=== PATIENT | female | born 1975 ===

== ENCOUNTER 2019-11-24 16:07 | Outpatient (REF) | payer BC, SELFPAY ==
--- NOTE | 2019-11-24 | XR_ITS ---
EXAMINATION: XR CHEST CLINICAL INFORMATION: Preprocedural examination COMPARISON: None TECHNIQUE: 2 views of the chest were obtained. FINDINGS: Mild bronchovascular crowding. No focal consolidation or mass. Normal pulmonary vascularity. No pleural effusion or pneumothorax. Normal heart size. There are degenerative changes of the shoulders and thoracic spine. IMPRESSION: No acute pulmonary disease.
[2019-11-24 16:54] LABS: MANUAL DIFF FLAG NO
[2019-11-24 16:57] LABS: Basophils Percent Auto 0.2 % (0-2); Eosinophils Absolute Auto 0.1 X10*3/uL (0.0-0.4); Hematocrit 35.3 % (37-47); Hemoglobin 11.1 g/dl (12.0-16.0); Imm Gran Abs Auto 0.03 X10*3/uL (0.00-0.03); Imm Gran Pct Auto 0.4 % (0.0-0.4); Lymphocytes Absolute Auto 2.3 X10*3/uL (1.2-4.9); Lymphocytes Percent Auto 26.9 % (20-40); Mean Corpuscular HGB Conc 31.4 g/dl (31.0-35.0); Mean Corpuscular Hemoglobin 27.4 pg (27.0-33.0); Mean Corpuscular Volume 87.2 fL (80-98); Mean Platelet Volume 9.9 fL (9.4-12.3); Monocytes Absolute Auto 0.4 X10*3/uL (0.1-1.2); Monocytes Percent Auto 4.2 % (2-11); Neutrophils Absolute Auto 5.7 X10*3/uL (2.0-8.3); Neutrophils Percent Auto 67.3 % (45-73); Platelet Count 368 X10*3/uL (160-400); Red Blood Count 4.05 X10*6/uL (4.20-5.50); Red Cell Distribution Width 12.9 % (11.0-16.0); White Blood Count 8.4 X10*3/uL (4.8-10.8)
[2019-11-24 17:05] LABS: Estimated Average Glucose 128 mg/dL; Hemoglobin A1c % 6.1 %
[2019-11-24 17:26] LABS: Alanine Aminotransferase 18 U/L (0-31); Albumin Level 4.3 g/dL (3.5-5.0); Alkaline Phosphatase 95 U/L (39-117); Anion Gap 13 (12-20); Aspartate Amino Transferase 15 U/L (5-31); Bilirubin Total 0.3 mg/dL (0.0-1.0); Blood Urea Nitrogen 12 mg/dL (9-16); Calcium 9.1 mg/dL (8.4-10.2); Carbon Dioxide 25 mmol/L (22-29); Chloride 108 mmol/L (96-108); Cholesterol 180 mg/dL; Estimated Glomerular Filt Rate > 60; Glucose Random 94 mg/dL (60-115); HDL Cholesterol 31 mg/dL; Iron 29 mcg/dL (30-160); LDL Cholesterol Calculated 130 mg/dl; Percent Iron Saturation 8 % (15-50); Sodium 142 mmol/L (135-145); Total Iron Binding Capacity 359 mcg/dL (228-428); Total Protein 7.2 g/dL (6.5-8.0); Triglycerides 99 mg/dL; Unsaturated Iron Binding 330 ug/dL
[2019-11-24 17:48] LABS: Ferritin 64 ng/mL (10-250); Vitamin D 25-OH Total 11.9 ng/mL (>30)
[2019-11-24 17:57] LABS: Vitamin B12 632 pg/mL (200-900)
[2019-11-25 12:47] LABS: Insulin Level Total 11.7 uIU/mL
[2019-11-26 02:11] LABS: Calcium (PTHI) 9.2 mg/dL (8.6-10.2); PTHI 70 pg/mL (14-64)
[2019-11-28 02:52] LABS: Zinc 72 mcg/dL (60-130)
[2019-11-29 12:46] LABS: Vitamin B1 <6 nmol/L (8-30)
[2019-11-29 22:21] LABS: Vitamin A 31 mcg/dL (38-98)
== END 2019-11-24 16:08 | disposition home or self-care (01) ==
LOC: HO.LAB 16:07
PROVIDERS: PCP Family Medicine; Visit Provider Surgery
DX: Z01.818 Encounter for other preprocedural examination (principal); E66.01 Morbid (severe) obesity due to excess calories; M51.34 Other intervertebral disc degeneration, thoracic region; R06.02 Shortness of breath
CPT/HCPCS: 36415; 71046; 80053; 80061; 82306; 82607; 82728; 82746; 83036; 83525; 83540; 83970; 84425; 84443; 84590; 84630; 85025; 86140

== ENCOUNTER → 2019-12-08 15:32 | Outpatient (REF) | payer BC, SELFPAY ==
--- NOTE | 2019-12-08 15:43 | ECG_ITS ---
Test Reason : SOB, PREOP Blood Pressure : / mmHG Vent. Rate : 095 BPM Atrial Rate : 095 BPM P-R Int : 142 ms QRS Dur : 090 ms QT Int : 358 ms P-R-T Axes : 041 019 -17 degrees QTc Int : 449 ms Normal sinus rhythm Nonspecific ST and T wave abnormality Abnormal ECG No previous ECGs available Referred By: Jacques Rodriguez Electronically Signed By:ASHLEY HAY MD
== END ==
LOC: HO.CARD 15:32
PROVIDERS: Visit Provider Surgery
DX: Z01.818 Encounter for other preprocedural examination (principal); R06.02 Shortness of breath; R94.31 Abnormal electrocardiogram [ECG] [EKG]
CPT/HCPCS: 93005

== ENCOUNTER → 2019-12-14 07:33 | Outpatient (BNVA) | payer BC, SELFPAY | PROVIDERS: PCP Orthopaedic Surgery; Referring Provider Orthopaedic Surgery; Visit Provider Surgery | DX: Z76.89 Persons encountering health services in other specified circumstances (principal) ==

== ENCOUNTER 2019-12-15 12:47 | Outpatient (REF) | payer BC, SELFPAY ==
[2019-12-16 16:07] LABS: H Pylori Breath Test NOT DETECTED (NOT DETECTED)
== END 2019-12-15 12:48 | disposition home or self-care (01) ==
LOC: HO.LNP 12:47
PROVIDERS: PCP Orthopaedic Surgery; Referring Provider Orthopaedic Surgery; Visit Provider Dietitian, Registered
DX: Z01.818 Encounter for other preprocedural examination (principal); E66.01 Morbid (severe) obesity due to excess calories; A04.8 Other specified bacterial intestinal infections; Z68.42 Body mass index [BMI] 45.0-49.9, adult; Z88.2 Allergy status to sulfonamides; Z91.040 Latex allergy status; Z71.3 Dietary counseling and surveillance
CPT/HCPCS: 83013

== ENCOUNTER 2019-12-15 16:00 | Outpatient (RCR) | payer BC, SELFPAY ==
--- NOTE | 2020-05-10 08:37 | MHC.PT.DC ---
[facility] [place] Office [place] Office [place] Office [address] Fei Winter [address] [phone] F: [phone] F: [phone] F: [phone] F: [phone] Physical Therapy Discharge Report Diagnosis: right knee pain Date of Surgery: Date of Evaluation: 10/20/19 Date of Discharge: 05/10/20 Treatments to Date: 9 Cancellations to Date: 0 No Shows to Date: 0 Discharge Status: Independent with HEP Visit Non-compliance Discharge Summary: Pt did not f/u with last visit and is d/c at this time. Electronically signed by: Katharine Dominguez PT Please sign and return to therapist. Thank you for your referral.
== END 2020-05-10 08:37 | disposition home or self-care (01) ==
LOC: HO.PT 16:00
PROVIDERS: Visit Provider Family Medicine
DX: M25.561 Pain in right knee (principal)
CPT/HCPCS: 97110

== ENCOUNTER 2020-01-05 09:17 | Outpatient (REF) | payer BC, SELFPAY ==
--- NOTE | 2020-01-05 09:30 | CA_ITS ---
Transthoracic Echocardiogram Patient (Last, First, Middle): Shantel Smith C Gender: Female Date of : 1975 Age: 44 Procedure Date: 01/05/2020 Procedure Type: Transthoracic Echocardiogram Location: OP Height: 160.02 cm Weight: 124.74 kg BSA: 2.21 m2 Heart Rate: bpm BP: 136 / 86 mmHg House Painter: Renu MD: Jacques Rodriguez MD Bench Grinder: Sammy Ryan MD Symptoms: Z01.818 PRE OP I10 HTN Study Quality: Good ECG Rhythm: Sinus Conclusions: - Essentially normal study Findings Left Ventricle Normal left ventricular size, thickness, and systolic function. The visually estimated ejection fraction is between 55-60%. Diastolic function is normal for age. Right Ventricle Normal right ventricular cavity size and systolic function. Atria Both atria are normal in size. There is no evidence of interatrial shunt. Aortic Valve Normal aortic valve structure and function. There is no aortic valve stenosis. There is no aortic valve regurgitation. Mitral Valve Normal mitral valve structure and function. There is trace mitral valve regurgitation. There is no mitral valve stenosis. Pulmonic Valve The pulmonic valve is likely normal. Tricuspid Valve Normal tricuspid valve structure. There is trace tricuspid valve regurgitation. The right ventricular systolic pressure is normal. The right ventricular systolic pressure is 28 mmHg. Normal right atrial pressure. There is no evidence of pulmonary hypertension. Great Vessels All visible segments of the aorta are normal in size. The pulmonary artery was not well visualized. Venous The inferior vena cava is normal in size and collapses greater than 50% with inspiration. Pericardium/Pleural There is no evidence of pericardial effusion. Prior Study Comparison No prior study available for comparison. Measurements 2D Linear Measurements RVIDd: 3.10 RVIDd Index: 1.40 IVSd: 0.91 0.6-0.9/0.6-1.0 cm LVIDd: 5.35 3.9-5.3/4.2-5.9 cm LVIDd Index: 2.42 2.4-3.2/2.2-3.1 cm/m2 LVIDs: 3.64 2.0-3.6 cm LVPWd: 1.13 0.7-1.1 cm Ao Root: 3.10 2.1-3.5 cm LA Diam: 4.40 2.7-3.8/3.0-4.0 cm LAIDs Index: 1.99 1.5-2.3 cm/m2 LV Mass: 259.62 67-162/88-224 g LV Mass Index: 117.48 43-95/49-115 g/m2 LVOT Diam: 2.20 3.0+(-)1.3 cm 2D Systolic Function EF 4C: 51.70 >55% EF 2C: 52.70 >55% Mitral Valve MV Pk E: 0.74 MV PK A: 0.55 MV Decel Time: 168.00 E/A: 1.30 E'Lateral: 10.80 E'Medial: 5.98 E/E' Med: 12.30 E/E' Lat: 6.80 Aortic Valve AoV Pk Enmanuel: 1.58 AoV Mn Enmanuel: 1.18 AoV VTI: 0.30 AoV Pk Grad: 10.00 Aov Mn Grad: 6.00 LAWRENCE Cont.VTI: 2.05 LVOT LVOT Pk Enmanuel: 0.88 LVOT Mn Enmanuel: 0.56 LVOT VTI: 0.16 LVOT Pk Grad: 3.00 LVOT Mn Grad: 2.00 LVOT Diam: 2.20 LVOT Area: 3.80 Diastolic Function MV Pk E: 0.74 MV Pk A: 0.55 E/A: 1.30 E'Medial: 5.98 E/E' Med: 12.30 E' Laterial: 10.80 E/E' Lat: 6.80 Tricuspid Valve TR Pk Enmanuel: 2.48 TR Pk Grad: 25.00 RA Press: 3.00 RVSP: 28.00 Great Vessels Aorta Ao Root-2D: 3.10 2.0-3.7 cm Ao Asc: 3.20 2.1-3.4 cm Ao Arch: 2.90 Updated in Other Vendor System with Status of Final Sammy Ryan MD electronically signed on 01/06/2020 2:43:48 PM with status of Final
--- NOTE | 2020-01-05 10:20 | FL_ITS ---
EXAMINATION: XR GI SERIES CLINICAL INFORMATION: Obesity. GERD. COMPARISON: None. TECHNIQUE: Air contrast upper GI examination. FINDINGS: Patient swallowed thin and thick barium and CO2 crystals without difficulty. No nasopharyngeal reflux or tracheal aspiration appreciated. There is normal esophageal motility without evidence of hiatal hernia or mucosal abnormality. There was spontaneous gastroesophageal reflux elicited to the level of the patricia which cleared rapidly. The stomach demonstrated normal distensibility without abnormal mass or ulceration. There was no delay in gastric emptying. The duodenal bulb and sweep are unremarkable FLUOROSCOPY TIME: 0.9 minute. DOSE AREA PRODUCT: 16.065 Gy-cm2. FL/FL upper GI series IMPRESSION: Gastroesophageal reflux to the level of the patricia which clears rapidly. Otherwise unremarkable air-contrast upper GI examination.
== END 2020-01-05 09:18 | disposition home or self-care (01) ==
LOC: HO.US 09:17
PROVIDERS: Visit Provider Surgery
DX: Z01.818 Encounter for other preprocedural examination (principal); I10 Essential (primary) hypertension; E66.01 Morbid (severe) obesity due to excess calories; K21.9 Gastro-esophageal reflux disease without esophagitis
CPT/HCPCS: 74240; 93306

== ENCOUNTER 2020-01-05 10:17 | Outpatient (REF) | payer BC, SELFPAY | END 2020-01-05 10:18 | disposition home or self-care (01) | LOC: HO.XRAY 10:17 | PROVIDERS: Visit Provider Surgery | DX: Z13.89 Encounter for screening for other disorder (principal) ==

== ENCOUNTER → 2020-01-06 07:20 | Outpatient (BNVA) | payer BC, SELFPAY | PROVIDERS: PCP Orthopaedic Surgery; Visit Provider Surgery | DX: Z76.89 Persons encountering health services in other specified circumstances (principal) ==

== ENCOUNTER → 2020-01-11 07:31 | Outpatient (BNVA) | payer BC, SELFPAY | PROVIDERS: Visit Provider Surgery | DX: Z76.89 Persons encountering health services in other specified circumstances (principal) ==

== ENCOUNTER 2020-01-26 14:32 | Outpatient (REF) | payer BC, SELFPAY ==
--- NOTE | 2020-01-26 | US_ITS ---
EXAMINATION: US COMPLETE ABDOMEN WITH LIVER ELASTOGRAPHY CLINICAL INFORMATION: Obesity. COMPARISON: None. TECHNIQUE: Real-time imaging of the abdominal viscera. Noninvasive ultrasound liver fibrosis assessment is performed using David ElastPQ point quantification shear wave elastography (pSWE) with a 5 MHz transducer. Multiple elastography samples are obtained. FINDINGS: PANCREAS: Normal. The visualized pancreatic head and body are normal in appearance. The remainder of the pancreas is obscured from visualization by the overlying bowel gas. ABDOMINAL AORTA: The proximal, middle, and distal aortic segments are normal in caliber. INFERIOR VENA CAVA: Visualized portions are normal. LIVER: The liver demonstrates normal size, contour and increased echogenicity. No focal lesion or intrahepatic biliary duct dilatation. There is normal hepatopedal flow seen in the portal vein on Doppler exam. The right lobe measures 14.0 cm in length. The left lobe measures 11.4 cm in length. Shear wave elastography provides a median stiffness of 1.70 m/s (reference: normal median stiffness is 0.81 - 1.22 m/s). The IQR/median stiffness to assess sampling precision is 0.79 (reference: optimal IQR/median stiffness is under 0.3). GALLBLADDER: Normal. The gallbladder is physiologically distended without evidence of stones, sludge, polyps, wall thickening or pericholecystic fluid. COMMON BILE DUCT: Normal in caliber measuring 0.42 cm in diameter. RIGHT KIDNEY: Normal. No hydronephrosis. No renal calculi or focal parenchymal lesions. The kidney measures 11.2 cm in maximum dimension. LEFT KIDNEY: Normal. No hydronephrosis. No renal calculi or focal parenchymal lesions. The kidney measures 12.1 cm in maximum dimension. SPLEEN: Normal. The spleen measures 11.4 cm in maximum dimension. FREE FLUID: None. US/US abdomen comp w elastography IMPRESSION: 1. Hepatic steatosis without focal lesion. 2. Rest of the abdominal ultrasound is unremarkable. 3. Elastography: Vuoo-ix-qkentwon fibrosis, stage F2-F3. However, ultrasound liver sampling is suboptimal.
== END 2020-01-26 14:33 | disposition home or self-care (01) ==
LOC: HO.US 14:32
PROVIDERS: Visit Provider Surgery
DX: Z01.818 Encounter for other preprocedural examination (principal); E66.01 Morbid (severe) obesity due to excess calories; K76.0 Fatty (change of) liver, not elsewhere classified
CPT/HCPCS: 76705; 76981

== ENCOUNTER 2020-01-30 12:10 | Outpatient (REF) | payer BC, SELFPAY | END 2020-01-30 12:11 | disposition home or self-care (01) | LOC: HO.LAB 12:10 | PROVIDERS: Visit Provider Internal Medicine | DX: Z20.828 Contact with and (suspected) exposure to other viral communicable diseases (principal) | CPT/HCPCS: C9803; U0003 ==

== ENCOUNTER → 2020-02-03 07:50 | Outpatient (BNVA) | payer BC, SELFPAY | PROVIDERS: PCP Family Medicine; Referring Provider Family Medicine; Visit Provider Surgery | DX: Z76.89 Persons encountering health services in other specified circumstances (principal) ==

== ENCOUNTER → 2020-02-13 08:20 | Outpatient (BNVA) | payer BC, SELFPAY | PROVIDERS: PCP Family Medicine; Visit Provider Dietitian, Registered | DX: Z76.89 Persons encountering health services in other specified circumstances (principal) ==

== ENCOUNTER → 2020-03-02 08:25 | Outpatient (BNVA) | payer BC, SELFPAY | PROVIDERS: PCP Family Medicine; Visit Provider Surgery | DX: Z76.89 Persons encountering health services in other specified circumstances (principal) ==

== ENCOUNTER → 2020-03-26 07:30 | Outpatient (BNVA) | payer BC, SELFPAY | PROVIDERS: PCP Family Medicine; Visit Provider Surgery ==

== ENCOUNTER → 2020-04-20 07:29 | Outpatient (BNVA) | payer BC, SELFPAY | PROVIDERS: PCP Family Medicine; Visit Provider Surgery ==

== ENCOUNTER → 2020-05-07 08:27 | Outpatient (BNVA) | payer BC, SELFPAY | PROVIDERS: PCP Family Medicine; Visit Provider Surgery ==

== ENCOUNTER → 2020-07-04 07:08 | Outpatient (BNVA) | payer BC, SELFPAY | PROVIDERS: PCP Family Medicine; Visit Provider Surgery ==

== ENCOUNTER → 2020-07-27 07:13 | Outpatient (BNVA) | payer BC, SELFPAY | PROVIDERS: PCP Family Medicine; Visit Provider Surgery ==

== ENCOUNTER → 2020-08-27 07:52 | Outpatient (BNVA) | payer BC, SELFPAY | PROVIDERS: PCP Family Medicine; Visit Provider Surgery ==

== ENCOUNTER → 2020-08-31 13:17 | Outpatient (BNVA) | payer BC, SELFPAY | PROVIDERS: PCP Family Medicine; Visit Provider Physician Assistant ==

== ENCOUNTER 2020-09-04 06:43 | Inpatient (IN) | payer BC, SELFPAY ==
[2020-08-29 14:23] VITALS: BMI 44.8
[2020-08-31 16:03] LABS: MANUAL DIFF FLAG NO
[2020-08-31 16:06] LABS: Basophils Percent Auto 0.4 % (0-2); Eosinophils Absolute Auto 0.1 X10*3/uL (0.0-0.4); Eosinophils Percent Auto 0.5 % (0-4); Hematocrit 38.2 % (37-47); Hemoglobin 12.1 g/dl (12.0-16.0); Imm Gran Abs Auto 0.05 X10*3/uL (0.00-0.03); Imm Gran Pct Auto 0.5 % (0.0-0.4); Lymphocytes Absolute Auto 2.5 X10*3/uL (1.2-4.9); Lymphocytes Percent Auto 26.7 % (20-40); Mean Corpuscular HGB Conc 31.7 g/dl (31.0-35.0); Mean Corpuscular Volume 88.4 fL (80-98); Mean Platelet Volume 9.5 fL (9.4-12.3); Monocytes Absolute Auto 0.4 X10*3/uL (0.1-1.2); Monocytes Percent Auto 3.7 % (2-11); Neutrophils Absolute Auto 6.5 X10*3/uL (2.0-8.3); Neutrophils Percent Auto 68.2 % (45-73); Platelet Count 413 X10*3/uL (160-400); Red Blood Count 4.32 X10*6/uL (4.20-5.50); Red Cell Distribution Width 12.8 % (11.0-16.0); White Blood Count 9.5 X10*3/uL (4.8-10.8)
[2020-08-31 16:12] LABS: INTERNATIONAL NORM RATIO 1.1 (0.9-1.1)
[2020-08-31 16:15] LABS: Partial Thromboplastin Time 31.8 SEC (24.1-38.0)
[2020-08-31 16:16] LABS: Estimated Average Glucose 111 mg/dL; Hemoglobin A1c % 5.5 %
[2020-08-31 16:24] LABS: Alanine Aminotransferase 24 U/L (0-31); Albumin Level 4.3 g/dL (3.5-5.0); Alkaline Phosphatase 96 U/L (39-117); Anion Gap 14 (12-20); Aspartate Amino Transferase 22 U/L (5-31); Bilirubin Total 0.4 mg/dL (0.0-1.0); Blood Urea Nitrogen 10 mg/dL (9-16); C Reactive Protein 1.36 mg/dL (< or = 0.50); Calcium 9.5 mg/dL (8.4-10.2); Carbon Dioxide 25 mmol/L (22-29); Chloride 107 mmol/L (96-108); Cholesterol 184 mg/dL; Creatinine Clr Calc Pharmacy 136.9; Estimated Glomerular Filt Rate > 60; Glucose Random 92 mg/dL (60-115); HDL Cholesterol 36 mg/dL; LDL Cholesterol Calculated 131 mg/dl; Potassium 4.4 mmol/L (3.3-5.1); Sodium 142 mmol/L (135-145); Total Protein 7.3 g/dL (6.5-8.0); Triglycerides 87 mg/dL
[2020-08-31 16:44] LABS: TSH reflex Free T4 1.35 uIU/mL (0.32-4.0)
[2020-09-01 09:52] LABS: Insulin Level Total 12.8 uIU/mL
--- NOTE | 2020-09-03 08:32 | P.CONAN_ITS ---
Documented by User: Adelia Edgar 09/03/20 08:33 HPI - Anesthesia Eval Consult details Narrative: 45yo F for Gastrectomy Sleeve, EGD, Poss Diaphragmatic Hernia, Poss Ventral Hernia, Poss open PMFSH Active Problems Active Problems: All Active Problems (Updated 08/29/20 @ 14:20 by Desiree Schmidt) Vitamin D deficiency (Acute) Anemia (Acute) Family planning (Acute) Pre-op evaluation (Acute) Morbid obesity (Acute) Past Medical History Medical History Arthritis Back pain GERD (gastroesophageal reflux disease) HTN (hypertension) DONAVAN on CPAP Pre-op evaluation Family History Family History Father Renal failure Mother Diabetes Hypothyroid Brother No problems noted. Sister No problems noted. Sister No problems noted. Surgical History Surgical History History of laparoscopy History of left oophorectomy Morbid obesity Umbilical hernia Social History Social History Household Members Other:: 2 Foster children Are you a primary career representative to a significant other at home: Yes (2 foster children will be cared for by others for 1 week after surgery) Do you presently have visiting nurse or other home services: No Alcohol intake: current Alcohol intake frequency: a few times a month Patient Tobacco Use Status: Never used Tobacco Use of substances other than those prescribed or required for medical reasons: No Have you been hit, kicked, punched, or otherwise hurt by someone within the past year? If so, by whom?: No Are you DNR?: No Advance Directives: No Advance Directives Information Provided: No Recently lost weight without trying: No Patient : No FDLMP: 07/31/20 : No Poor oral hygiene: No Meds Allergies Allergy/AdvReac Type Severity Reaction Status Date / Time latex Allergy Intermediate Blister Uncoded 08/29/20 14:22 Sulf-10 Allergy Intermediate Itching, Uncoded 08/29/20 14:22 skin crawls Exam Exam Date and Time: September 03, 2020 0832 Height,Weight and Vital Signs: Height 5 ft 3 in Weight 114.759 kg Pertinent Lab Results Pertinent Lab Results: Laboratory Tests 08/31/20 08/31/20 08/31/20 15:38 15:38 15:38 WBC 9.5 RBC 4.32 Hgb 12.1 Hct 38.2 MCV 88.4 MCH 28.0 MCHC 31.7 RDW 12.8 Plt Count 413 H MPV 9.5 Immature Gran % (Auto) 0.5 H Neut % (Auto) 68.2 Lymph % (Auto) 26.7 [place] % (Auto) 3.7 Eos % (Auto) 0.5 Baso % (Auto) 0.4 Lymph # (Auto) 2.5 [place] # (Auto) 0.4 Eos # (Auto) 0.1 Baso # (Auto) 0.0 Abs Immat Gran (auto) 0.05 H Absolute Neuts (auto) 6.5 Absolute Nucleated RBC 0.000 Nucleated RBC % (auto) 0.0 PT 12.0 INR 1.1 APTT 31.8 Sodium 142 Potassium 4.4 Chloride 107 Carbon Dioxide 25 Anion Gap 14 BUN 10 Creatinine 0.62 Estim Creat Clear Calc 136.9 Estimated GFR > 60 Random Glucose 92 Estimat Average Glucose Hemoglobin A1c % Total Insulin Calcium 9.5 Total Bilirubin 0.4 AST 22 D ALT 24 Alkaline Phosphatase 96 C-Reactive Protein 1.36 H Total Protein 7.3 Albumin 4.3 Triglycerides 87 Cholesterol 184 LDL Cholesterol, Calc 131 HDL Cholesterol 36 TSH 1.35 Blood Type Antibody Screen 08/31/20 08/31/20 08/31/20 15:38 15:38 15:38 WBC RBC Hgb Hct MCV MCH MCHC RDW Plt Count MPV Immature Gran % (Auto) Neut % (Auto) Lymph % (Auto) [place] % (Auto) Eos % (Auto) Baso % (Auto) Lymph # (Auto) [place] # (Auto) Eos # (Auto) Baso # (Auto) Abs Immat Gran (auto) Absolute Neuts (auto) Absolute Nucleated RBC Nucleated RBC % (auto) PT INR APTT Sodium Potassium Chloride Carbon Dioxide Anion Gap BUN Creatinine Estim Creat Clear Calc Estimated GFR Random Glucose Estimat Average Glucose 111 Hemoglobin A1c % 5.5 Total Insulin 12.8 Calcium Total Bilirubin AST ALT Alkaline Phosphatase C-Reactive Protein Total Protein Albumin Triglycerides Cholesterol LDL Cholesterol, Calc HDL Cholesterol TSH Blood Type O Positive Antibody Screen NEGATIVE Narrative Narrative: EKG 11/2019 Vent. Rate : 095 BPM Atrial Rate : 095 BPM P-R Int : 142 ms QRS Dur : 090 ms QT Int : 358 ms P-R-T Axes : 041 019 -17 degrees QTc Int : 449 ms Normal sinus rhythm Nonspecific ST and T wave abnormality Abnormal ECG No previous ECGs available ECHO 12/2019 Conclusions: - Essentially normal study Assessment and Plan Assessment Anesthesia Assessment: Chart Reviewed Documented by User: Wan Glover 09/04/20 07:33 PMFSH Past Medical History Medical History Arthritis Back pain GERD (gastroesophageal reflux disease) HTN (hypertension) DONAVAN on CPAP Pre-op evaluation Family History Family History Father Renal failure Mother Diabetes Hypothyroid Brother No problems noted. Sister No problems noted. Sister No problems noted. Surgical History Surgical History History of laparoscopy History of left oophorectomy Morbid obesity Umbilical hernia Social History Social History Household Members Other:: 2 Foster children Are you a primary career representative to a significant other at home: Yes (2 foster children will be cared for by others for 1 week after surgery) Do you presently have visiting nurse or other home services: No Alcohol intake: current Alcohol intake frequency: a few times a month Patient Tobacco Use Status: Never used Tobacco Use of substances other than those prescribed or required for medical reasons: No Have you been hit, kicked, punched, or otherwise hurt by someone within the past year? If so, by whom?: No Are you DNR?: No Advance Directives: No Advance Directives Information Provided: No Recently lost weight without trying: No Patient : No FDLMP: 07/31/20 : No Poor oral hygiene: No Meds Allergies Allergy/AdvReac Type Severity Reaction Status Date / Time latex Allergy Intermediate Blister Uncoded 08/29/20 14:22 Sulf-10 Allergy Intermediate Itching, Uncoded 08/29/20 14:22 skin crawls Exam Airway Mallampati Class: III TM Dist: >3cm Neck ROM: Full Loose/Missing/Broken Teeth: No Heart: [id number] Lungs: cta b/l Assessment and Plan Assessment Anesthesia Assessment: Anesthesia Plan Discussed, PAT Visit and Chart Reviewed Final Anesthetic Review NPO: Yes ASA Class: III Final Preanesthetic Review: No Changes in Pt Med Stat, Meds/Allgs Chart Reviewed, Consent Obtained/Reviewed and Anes Risks/Benef Reviewed Patient Risk: Intermediate Procedure Risk: Low Assessment/Block/Sedation in SS: Assess/Block/Sedation-SS Anesthetic Plan Anesthetic Plan: GA and Agree w/ Assess. and Plan Disposition: Standard PACU
--- NOTE | 2020-09-03 23:54 | MHC.SHP ---
Pre-Procedural Eval Section A Date of Service: 09/03/20 The patient is an INPATIENT: Yes The History & Physical has been completed within 30 days and I have reviewed it.: Yes Section B Chief Complaint: Morbid Severe Obesity Details of Present Illness: Obesity Relevant Family History (Specify if Yes): No Relevant Social History: None Present Medications: see Short Stay Collaborative assessment Medical History: No relevant PMH History of Previous Operations: No relevant previous surgery Allergies: Allergies Allergy/AdvReac Type Severity Reaction Status Date / Time latex Allergy Intermediate Blister Uncoded 08/29/20 14:22 Sulf-10 Allergy Intermediate Itching, Uncoded 08/29/20 14:22 skin crawls Review of Systems Sugical H&P ROS: Negative: Constitution, Cardiovascular, Respiratory, Neurological, Psychiatric, Hem-Onc, Allergic/Immunologic, Gastrointestinal, Genitourinary, Musculoskeletal, Integumentary, Endocrine and Eyes/Ears/Nose/Throat Exam Surgical H&P Exam: Normal: HEENT, Normal: Heart, Normal: Lungs, Normal: Extremities, Normal: Abdomen, Normal: Skin and Normal: Neurological Plan Diagnosis/Plan: Unchanged I have reviewed the history and physical and performed a pertinent physical examination on my patient. No changes have occurred unless specified.
[2020-09-04] VITALS (10 sets, daily range): BP systolic 134–161; BP diastolic 81–96; PULSE 70–86; RESP 16–20; TEMP 36.2–36.4; O2SAT 96–100
[2020-09-04 07:56] LABS: UPreg QC Valid YES; Urine Pregnancy NEGATIVE (NEGATIVE)
[2020-09-04 08:09] LABS: COVID-19 Test Negative (Negative)
[2020-09-04] MEDS: Lactated Ringers 1,000 ML 999 ML IV (08:26)
--- NOTE | 2020-09-04 14:03 | P.BOP_ITS ---
Brief Operative Note Date of Service: 09/04/20 Pre-op diagnosis: Morbid obesity and comorbidities (see below) Post-op diagnosis: same (& extensive abdominal adhesions, hepatomegaly, diaphragmatic hernia) Procedure: INITIAL PATIENT BMI ON PRESENTATION AT OUR OFFICE: 50.4 kg/m2 LAST BMI BEFORE SURGERY: 45.6 kg/m2 COMORBIDITIES: sleep apnea, hypertension, diabetes, PCOS, liver steatosis, liver fibrosis, knee pain, GERD The patient participated in an intensive weekly lifestyle intervention and exercise program during which the patient has lost between the initial office visit and the last preoperative visit 29.8 lbs, or 10.5% of initial actual body weight. The patient met the BMI-criteria for bariatric surgery based on the BMI on initial presentation. The patient should not be penalized for achieving such weight loss because it is not sustainable long-term without surgical intervention and it was achieved in preparation for bariatric surgery under my direction and based on my published research ([email or web address] and [email or web address]) that a 10% preoperative weight loss improves long-term weight loss after surgery and reduces perioperative complications. Insurance carriers such as [facility] have endorsed my recommendations and have included in their policies criteria to include a 10% preoperative weight loss requirement. PROCEDURE: Esophago-gastroscopy, laparoscopic repair of incarcerated diaphragmatic hernia, extensive laparoscopic lysis of adhesions, laparoscopic sleeve gastrectomy and laparoscopic gastropexy INDICATIONS: This is a 45 year-old female who was electively scheduled for laparoscopic, possibly open sleeve gastrectomy. The risks and complications of the procedure were discussed with the patient in advance, particularly the possibility of ; pulmonary embolism; staple line leak; bleeding; GERD; cardiac, pulmonary, or renal complications; as well as long-term problems such as insufficient weight loss, vitamin deficiency, strictures, or ulcers. The patient understood all the risks, and was in agreement to proceed with surgery. DESCRIPTION OF PROCEDURE: After informed consent was obtained from the patient, the patient was given preoperative antibiotics, and was transferred to the operating room. After successful induction of general anesthesia, pneumatic compressive devices were placed on both lower extremities. An upper endoscopy was performed next. The oropharynx and esophagus appeared to be within normal limits. There was a diaphragmatic hernia present that was not reported at the preoperative upper GI. The stomach was entered. Then after all fluid and air were suctioned and the stomach was fully decompressed, the scope was withdrawn and secured in the mid esophagus. The patient was then prepped and draped in the usual sterile manner. The patient extensive past surgical history with the last surgery being an open vental hernia repair with a midline incision extending all the way to the xyphoid process. I attempted initially to gain abdominal access with the Veress needle to right upper quadrant. I tried unsuccessfully twice and I aborted this option. I then gained access with the Jcarlos technique at the right flank. A 12 mm blunt port was inserted, and the abdomen was insufflated with CO2 to a pressure of 15 mmHg. Under direct visualization, no injury was noted and an 5 mm a dditional port was placed at the right groin. There were extensive adhesions everywhere involving multiple small bowel loops and the omentum. I found a free space at the right flank near the right liver edge and three 5 mm Versi-step ports were placed. With these three ports I used the Thunderbeat to lyse adhesions in the upper abdomen. The adhesions involved the omentum and several densely adherent small bowel loops. It requires tedious and very difficult dissection but at the end I was able to free all adhesions in the upper abdomen and free enough space to place the additional ports to perform the sleeve. The adhesiolysis was extremely difficult, one of the most challenging I have done, prolonged the operation for jennifer 2 hours and required an additional 4 extra ports to complete. The patient was placed on reverse trendelenburg position and additional ports were placed. Specifically two 5 mm Versi-step ports to the left upper quadrant, and a 5 mm Versi-Step port to the right upper quadrant and a 12 mm Versi step to the right of the midline. 1% lidocaine plain was used to infiltrate all port sites as well as all fascia defects. The patient had significant hepatomegaly and the liver retraction was also very difficult. The Pretzel retractor was used with the Travel Notesflex retractor system. The gastro-esophageal fat pad was opened with the ultrasonic device (Thunderbeat, Olympus) and the anterior esophagus and hiatus were exposed. The angle of His was opened with the ultrasonic device the fundus of the stomach from any diaphragmatic and splenic attachments. I then opened the gastrocolic ligament between the transverse colon and the greater curvature of the stomach with the ultrasonic device to enter the lesser sac and facilitate the ligation of the short gastric vessels. I started at a mid-point along the greater curvature and using the Thunderbeat, all short gastric vessels were divided all the way to the angle of His until the left ezra was completely dissected at its entirety. I then divided the gastro-colic ligament distally to a distance of about 3-4 cm proximal to the esophagus. There were extensive congenital adhesions between the pancreas and posterior gastric wall. Those were lysed completely with the ultrasonic device. Total adhesiolysis took approximately 130 min to complete. There was an obvious significant-sized hiatal hernia. I continued dissecting along the hiatus toward the left ezra and the angle of His. I fully mobilized the fat pad that was incarcerated in the hernia. I then continued by dissecting even further into the posterior retro-esophageal space all the way to the angle of His. I continued to mobilize the esophagus into the mediastinum circumferentially. Both vagal nerves were seen and preserved. At that point, I was able to have at least 3 to 5 cm of esophagus into the abdomen. After I completely mobilized the esophagus from both the left and right ezra and I had a good mobilization of the esophagus circumferentially, I closed the hernia defect with three interrupted #0 Surgidac sutures using the Endo Stitch device, two of which were placed posterior and one anterior to the esophagus. The stomach was then divided transversely with one Endo YOLIS-45 purple, one YOLIS- 45 orange load and four YOLIS-60 articulating orange loads using the AEON stapler and loads. Every effort was made that the gastric sleeve had a tubular shape and an even caliber throughout. Once the sleeve resection was completed, the staple line of the gastric sleeve was reinforced with Hemoclips. The resected stomach was retrieved without difficulty from the Jcarlos port. A gastropexy was then performed in order to prevent postoperative GERD and partial gastric volvulus. Several interrupted 2.0 Surgidac sutures were placed between the sleeve's staple line and the previously divided greater omentum and gastro-colic ligament using the Endo-Stitch device. An upper endoscopy was performed. There was no narrowing at the GE junction. The scope was easily advanced all the way to the pylorus which was clearly visualized. There was no narrowing anywhere and the sleeve's caliber was even throughout. The sleeve's staple line was inspected and there was no evidence of ischemia, bleeding or dehiscence. At that point the gastroscope was withdrawn from the patient?s mouth while we were decompressing the bowel and the stomach from any remaining air. I looked into the lesser sac to see how the sleeve was situating and it was situating well. There was no bleeding from the staple line, spleen, or short gastric vessels. The Mediflex retractor was removed, and the undersurface of the liver was inspected and there was no bleeding. The patient was placed in supine position. I closed the fascial defect of the 12 mm port site at the right flank with a figure of eight #1 Polysorb suture. Then 100 cc 0.25 % Marcaine plain with 10 mg of Dexamethasone were used to infiltrate the fascial closure as well as all skin incisions. At this point, the abdomen was deflated, all ports were removed under direct vision, and no bleeding was noted from any of the port sites. The skin incisions were irrigated with saline and were closed with 4-0 absorbable monofilament sutures. Steri-Strips and OpSites were used to cover all incisions. The patient was extubated and was transferred in stable condition to the recovery room for further care. I was present and performed all cochran parts of the procedure. Shireen Alicea was the certified surgical first assistant. There were no residents to assist with this case. Jered Rodriguez MD, PhD, FACS Surgeon: Jacques Rodriguez MD Anesthesia: GETA, local and other (TAP block) Was an Dust Control Engineer used for this Procedure?: Yes Dust Control Engineer: Renae Alicea Estimated blood loss (mL): 20 IV fluids (mL): 3,000 Urine output (mL): 0 (No Lo to record) Pathology: other (Stomach) Condition: stable Disposition: PACU
--- NOTE | 2020-09-04 14:04 | P.DS_ITS ---
DS: Providers Provider Date of Service: 09/05/20 Date of admission: 09/04/20 06:43 Primary care physician: Stu Landaverde MD DS: Medications Discharge Medications Home Medications: Previous Rx's Medication Instructions Recorded cholecalciferol (vitamin D3) 125 125 mcg PO DAILY #30 cap 11/26/19 mcg (5,000 unit) capsule iron,carbonyl 65 mg-vitamin C 125 1 tab PO DAILY #30 tab 11/26/19 mg tablet,delayed release thiamine HCl (vitamin B1) 100 mg 100 mg PO DAILY 30 Days #30 tab 02/23/20 tablet vitamin A 10,000 unit capsule 10,000 unit PO DAILY #30 cap 02/23/20 phentermine 37.5 mg capsule 37.5 mg PO DAILY #30 cap 05/12/20 phentermine 37.5 mg capsule 37.5 mg PO DAILY #30 cap 07/04/20 amlodipine 10 mg tablet 10 mg PO DAILY #30 tab 08/16/20 ondansetron HCl 4 mg tablet 4 mg PO Q12H #20 tab 08/27/20 pantoprazole 40 mg tablet,delayed 40 mg PO DAILY #30 tab 08/27/20 release polyethylene glycol 3350 17 gram 17 g PO DAILY #14 ea 08/27/20 oral powder packet sucralfate 100 mg/mL oral 10 ml PO BID #400 ml 08/27/20 suspension DS: Summary Time Spent with Patient Time attestation: ADMITTING DIAGNOSIS: morbid obesity, diaphragmatic hernia, HTN DISCHARGE DIAGNOSIS: same, s/p laparoscopic sleeve gastrectomy and repair diaphragmatic hernia PAST SURGICAL HISTORY: ventral hernia with mesh, oophorectomy PROCEDURE: upper endoscopy, laparoscopic sleeve gastrectomy and repair of diap hragmatic hernia hernia DISCHARGE SUMMARY: History of Present Illness: The patient is a 45 year-old woman with a BMI of 49.7 kg/m2 and associated co- morbidities as described above. The patient had extensive work-up,lost 23.6 lbs preoperatively and was electively scheduled for laparoscopic, possible open sleeve gastrectomy and gastropexy. Risks and complications of the surgery were discussed with the patient in advance, particularly the possibility of , pulmonary embolism, anastomotic leak, bleeding, bowel injury, GERD, cardiac, renal or pulmonary complications. The patient understood all the risks and was in agreement with the surgical plan. Hospital Course: The patient underwent an uneventful laparoscopic sleeve gastrectomy with gastropexy and repair of diaphragmatic hernia on the day of admission. Postoperatively, the patient was transferred to the surgical floor. The patient was on IV Acetaminophen and IV dilaudid for pain control. Patient was started on bariatric phase 1 diet POD #0. On postoperative day one, the patient was feeling well without nausea, vomiting, fevers, or tachycardia. The patient had some mild incisional pain. The abdomen was soft. On the morning of postoperative day one, the patient was continued on 1 ounce of water or ice every half hour. During the first day, the patient did fairly well, having some incisional pain, but able to ambulate adequately and to tolerate liquids well. Since the patient is doing well, we decided that the patient was ready to be discharged. The patient was given instructions to follow-up with me next week and to call my office for any fever over 101, persistent abdominal pain, nausea, vomiting, GERD, symptoms of DVT such as calf tenderness, or leg swelling, or pulmonary embolism such as chest pain or shortness of breath. The patient was also instructed to drink 40-60 ounces of liquids per day using the 1-ounce cups. The patient was given prescription for Tylenol for pain, Zofran prn for nausea, and pantoprazole and carafate. The patient was encouraged to ambulate and use the incentive spirometer. The patient was allowed to shower, but no baths, and encouraged to stay active at home. All of these instructions were given to the patient personally. All questions were answered and the patient understood all instructions, the instructions were also given to the patient in print. Total time spent providing and/or coordinating discharge services: 15 Discharge coordination time: Less than 30 minutes Quality: Stroke Does the patient have a stroke diagnosis?: No Physical Exam Vital Signs: Vital Signs: Last Vital Signs Temp 97.5 F 09/04/20 08:08 Pulse 70 09/04/20 08:08 Resp 16 09/04/20 08:08 BP 137/81 09/04/20 08:08 Pulse Ox 99 09/04/20 08:08 Body Mass Index 44.8 DS: Data Data Completed and Pending Pending studies at discharge: Pending at discharge 09/04/20 12:02 Surgical [PTH] Routine Labs on day of discharge: Laboratory Results - last 24 hr 09/04/20 09/04/20 07:35 07:35 Urine Test NEGATIVE COVID-19 ([facility]) Negative COVID-19 Clin Com See Note Discharge Plan Discharge Anticipated Discharge Date/Time: 09/05/20 13:59 Patient Disposition: Home, Self-Care Discharge Diagnosis: s/p sleeve gastrectomy Referrals: Stu Landaverde MD [Primary Care Provider] - 1 Week Discharge Medications: Continued amlodipine 10 mg tablet 10 mg PO DAILY Qty: 30 RF: 2 pantoprazole 40 mg tablet,delayed release (DR/EC) 40 mg PO DAILY Qty: 30 RF: 2 sucralfate 100 mg/mL suspension 10 ml PO BID Qty: 400 RF: 2 ondansetron HCl [Zofran] 4 mg tablet 4 mg PO Q12H Qty: 20 RF: 0 Discontinued cholecalciferol (vitamin D3) 125 mcg (5,000 unit) capsule 125 mcg PO DAILY Qty: 30 RF: 2 Vitron-C 65 mg iron- 125 mg tablet,delayed release (DR/EC) 1 tab PO DAILY Qty: 30 RF: 2 thiamine HCl (vitamin B1) 100 mg tablet 100 mg PO DAILY 30 Days Qty: 30 RF: 5 vitamin A 10,000 unit capsule 10,000 unit PO DAILY Qty: 30 RF: 0 phentermine 37.5 mg capsule 37.5 mg PO DAILY Qty: 30 RF: 0 phentermine 37.5 mg capsule 37.5 mg PO DAILY Qty: 30 RF: 0 polyethylene glycol 3350 [Miralax] 17 gram powder in packet 17 g PO DAILY Qty: 14 RF: 0 Discharge Orders: Discharge Order (Routine); Ordered 09/05/20 Ordered By: Jacques Rodriguez Diet: other Activity on Discharge: No heavy lifting Stand Alone Forms: Patient Portal Discharge page Activity Restrictions/Additional Instructions: No tub baths, sex or returning to work until discussed at first post op appointment. No exercise, alcohol, tobacco or illegal drug use. Continue to use incentive spirometer hourly while awake. Walk in home for 5- 10 minutes every 2 hours during the first week. Continue phase 1 diet today and start phase 2 diet tomorrow morning. Follow all instructions in the bariatric handbook and call with any questions. The patient's medical history has been reviewed and they are considered low risk for post op DVT and therefore DVT prophylaxis is not considered necessary. Travel after surgery was reviewed. The patient has not disclosed any travel plans during the first 30 days after surgery and they have been advised that within the first 30 days after surgery any bus, plane, train or car travel over 2 hours in duration is contraindicated due to the possibility of developing blood clots from immobility. Any travel, needs to include periods of ambulation of 10 minutes in duration every 2 hours. The patient was instructed to discuss any plans for travel during this period with their bariatric surgeon. Care Plan Goals: weight loss Health Concerns: morbid obesity Plan of Treatment: see discharge instructions Assessment: stable pod # 1 sleeve gastrectomy
--- NOTE | 2020-09-04 14:20 | PM.PNGS ---
Subjective Subjective Date of Service: 09/05/20 Interval history: Patient has mild incisional pain but was able to ambulate and use the incentive spirometer. She is tolerating phase 1 bariatric diet. Physical Exam Vital Signs: Vital Signs: Last Vital Signs Temp 97.1 F 09/04/20 13:58 Pulse 84 09/04/20 14:13 Resp 16 09/04/20 14:13 BP 138/92 H 09/04/20 14:13 Pulse Ox 97 09/04/20 14:13 Body Mass Index 44.8 GI: Inspection: Yes normal to inspection, Yes incision (clean, dry and intact) and Yes obesity Extrem: Right lower extremity: normal to inspection (no calf tenderness) Left lower extremity: normal to inspection (no calf tenderness) Progress Note: A&P Assessment and plan (1) Morbid obesity: Status: Acute (2) S/P laparoscopic sleeve gastrectomy: Status: Acute Assessment and Plan: s/p extensive laparoscopic lysis of adhesions, sleeve gastrectomy, gastropexy and diaphragmatic hernia repair Doing well Check am labs. If OK, will d/c home (3) Status post repair of paraesophageal diaphragmatic hernia: Status: Acute (4) Diaphragmatic hernia: Status: Acute (5) DONAVAN on CPAP: Status: Acute (6) GERD (gastroesophageal reflux disease): Status: Acute (7) Back pain: Status: Acute (8) Arthritis: Status: Acute (9) Hepatomegaly: Status: Acute (10) Steatosis, liver: Status: Acute (11) Liver fibrosis: Status: Acute (12) Intra-abdominal adhesions: Status: Acute (13) Congenital intra-abdominal adhesions: Status: Acute (14) Diabetes: Status: Acute (15) PCOS (polycystic ovarian syndrome): Status: Acute Fall Risk Details Current Medications: Current Medications Generic Name Dose Route Start Last Admin Trade Name Freq PRN Reason Stop Dose Admin Fentanyl 50 mcg 09/04/20 07:33 Fentanyl Citrate/Pf 100 Mcg/2 Ml Vial IVPUSH Q5M PRN Pain, Moderate (Pain Scale 4-6 Hydromorphone HCl 0.5 mg 09/04/20 07:33 Hydromorphone Hcl 0.5 Mg/0.5 Ml Syringe IVPUSH Q5M PRN Pain, Severe (Pain Scale 7-10) Promethazine HCl 12.5 mg/ 50.5 mls @ 202 mls/hr 09/04/20 07:33 Sodium Chloride IV ONCE PRN Nausea and Vomiting Lactated Ringer's 1,000 mls @ 100 mls/hr 09/04/20 08:00 Lr IVCONT .Q10H HERB Ondansetron HCl 4 mg 09/04/20 07:33 Ondansetron Hcl 4 Mg/2 Ml Vial IVPUSH ONCE PRN Nausea and Vomiting Oxycodone HCl 10 mg 09/04/20 07:33 Oxycodone Hcl Immed Release 5 Mg Tablet PO ONCE PRN Pain, Mild (Pain Scale 1-3) Time Spent With Patient Time: Total time spent is greater than 50% in coordination of care (as documented) at patient's floor/unit and/or counseling patient: Time with patient: less than 15 minutes Procedures Date of Service Date of Service: 09/05/20 Quality Stroke Does the patient have a stroke diagnosis?: No VTE Prior VTE?: No VTE Risk Level:: Surgical - moderate VTE Device Contraindication: N/A - Device Ordered VTE Drug Contraindication: Treatment Not Indicated
[2020-09-04] MEDS: Famotidine/PF 20 MG/2 ML VIAL IVPUSH (14:46)
[2020-09-04 15:03] LABS: Hematocrit 36.4 % (37-47); Hemoglobin 11.7 g/dl (12.0-16.0)
[2020-09-04 15:37] LABS: Anion Gap 13 (12-20); Blood Urea Nitrogen 12 mg/dL (9-16); Calcium 9.1 mg/dL (8.4-10.2); Carbon Dioxide 24 mmol/L (22-29); Chloride 106 mmol/L (96-108); Creatinine Clr Calc Pharmacy 119.6; Estimated Glomerular Filt Rate > 60; Glucose Random 176 mg/dL (60-115); Potassium 3.9 mmol/L (3.3-5.1); Sodium 139 mmol/L (135-145)
[2020-09-04] MEDS: Metoclopramide HCl 10 MG/2 ML VIAL IVPUSH (16:44)
[2020-09-04] MEDS: Lactated Ringers 1,000 ML 125 ML IVCONT (16:47)
[2020-09-04] MEDS: ondansetron HCL 4 MG/2 ML VIAL IVPUSH (22:58)
[2020-09-04] MEDS: 0.9 % Sodium Chloride Flush 3 ML SYRINGE IVFLUSH (22:58)
[2020-09-05] VITALS: BP 139/78; PULSE 85; RESP 18; TEMP 36.6; O2SAT 93
[2020-09-05] MEDS: Lactated Ringers 1,000 ML 125 ML IVCONT (00:12)
[2020-09-05 04:00] VITALS: BP 138/70; PULSE 90; RESP 16; TEMP 36.9; O2SAT 94
[2020-09-05 06:01] LABS: MANUAL DIFF FLAG NO
[2020-09-05 06:16] LABS: Basophils Percent Auto 0.1 % (0-2); Hematocrit 36.4 % (37-47); Hemoglobin 11.7 g/dl (12.0-16.0); Imm Gran Abs Auto 0.05 X10*3/uL (0.00-0.03); Imm Gran Pct Auto 0.5 % (0.0-0.4); Lymphocytes Absolute Auto 1.3 X10*3/uL (1.2-4.9); Mean Corpuscular HGB Conc 32.1 g/dl (31.0-35.0); Mean Corpuscular Hemoglobin 27.8 pg (27.0-33.0); Mean Corpuscular Volume 86.5 fL (80-98); Mean Platelet Volume 9.4 fL (9.4-12.3); Monocytes Absolute Auto 0.5 X10*3/uL (0.1-1.2); Monocytes Percent Auto 4.8 % (2-11); Neutrophils Absolute Auto 8.9 X10*3/uL (2.0-8.3); Neutrophils Percent Auto 82.6 % (45-73); Platelet Count 432 X10*3/uL (160-400); Red Blood Count 4.21 X10*6/uL (4.20-5.50); White Blood Count 10.7 X10*3/uL (4.8-10.8)
[2020-09-05 06:58] LABS: Anion Gap 14 (12-20); Blood Urea Nitrogen 7 mg/dL (9-16); Calcium 9.4 mg/dL (8.4-10.2); Carbon Dioxide 26 mmol/L (22-29); Chloride 105 mmol/L (96-108); Creatinine Clr Calc Pharmacy 136.9; Estimated Glomerular Filt Rate > 60; Glucose Random 118 mg/dL (60-115); Potassium 4.4 mmol/L (3.3-5.1); Sodium 141 mmol/L (135-145)
[2020-09-05] MEDS: ondansetron HCL 4 MG/2 ML VIAL IVPUSH (07:50)
[2020-09-05] MEDS: Famotidine/PF 20 MG/2 ML VIAL IVPUSH (07:50)
[2020-09-05 08:00] VITALS: BP 143/89; PULSE 85; RESP 16; TEMP 36.9; O2SAT 97
[2020-09-05] MEDS: amLODIPine Besylate 10 MG TABLET PO (08:27)
--- NOTE | 2020-09-05 09:25 | MHC.CM.PN ---
NURSE digital project manager note , patient does have a health care proxy at home requested that she mail one into [facility] medical record when she canelectronic medical record reviewed along with case discussed with staff nurse , met with patient she is aware that she will be discharged home today. 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
--- NOTE | 2020-09-05 15:08 | HO.POSTANES ---
Post Anesthesia Evaluation Post Anesthesia Evaluation Vital Signs: Vital Signs Temp Pulse Resp BP Pulse Ox 09/05/20 08:00 98.5 F 85 16 143/89 H 97 09/05/20 04:00 98.4 F 90 16 138/70 94 Anesthesia: General Endotracheal-GETA Mental Status: Awake Pain Control: Satisfactory Nausea/Vomiting: None Hydration: Adequate Anesthesia-Related Issues: No Anes. Related Issues
== END 2020-09-05 10:09 | disposition home or self-care (01) | DRG 403 ==
LOC: HO.SSSA 14:04 → HO.S3 14:52
PROVIDERS: Nurse Practitioner; Physician Assistant; Admitting Provider Surgery; PCP Family Medicine; Visit Provider Surgery
PROC: 0DB64Z3 Excision of Stomach, Percutaneous Endoscopic Approach, Vertical (ICD-10-PCS; CPT 43845; principal; 2020-09-04 10:10)
DX: E66.01 Morbid (severe) obesity due to excess calories (principal); K74.00 Hepatic fibrosis, unspecified; K44.0 Diaphragmatic hernia with obstruction, without gangrene; I10 Essential (primary) hypertension; K76.0 Fatty (change of) liver, not elsewhere classified; G47.33 Obstructive sleep apnea (adult) (pediatric); Z20.822 Contact with and (suspected) exposure to COVID-19; M19.90 Unspecified osteoarthritis, unspecified site; Z68.42 Body mass index [BMI] 45.0-49.9, adult; E11.9 Type 2 diabetes mellitus without complications; K66.0 Peritoneal adhesions (postprocedural) (postinfection); E28.2 Polycystic ovarian syndrome; Z99.89 Dependence on other enabling machines and devices; Z79.899 Other long term (current) drug therapy
CPT/HCPCS: 36415; 80048; 80053; 80061; 81025; 83036; 83525; 84443; 85014; 85018; 85025; 85610; 85730; 86140; 86850; 86900; 86901; 87635; 88307; 88342; 99024; A4649; J0131; J0690; J1100; J1170; J2250; J2370; J2405; J2765; J3010

== ENCOUNTER → 2020-09-10 07:21 | Outpatient (BNVA) | payer BC, SELFPAY | PROVIDERS: PCP Family Medicine; Visit Provider Surgery ==

== ENCOUNTER → 2020-10-15 07:25 | Outpatient (BNVA) | payer BC, SELFPAY | PROVIDERS: PCP Family Medicine; Visit Provider Surgery ==

== ENCOUNTER → 2020-11-19 07:42 | Outpatient (BNVA) | payer BC, SELFPAY | PROVIDERS: PCP Family Medicine; Visit Provider Surgery ==

== ENCOUNTER → 2020-12-31 08:09 | Outpatient (BNVA) | payer BC, SELFPAY | PROVIDERS: PCP Family Medicine; Visit Provider Physician Assistant Surgical ==

== ENCOUNTER → 2021-01-28 08:15 | Outpatient (BNVA) | payer BC, SELFPAY | PROVIDERS: PCP Family Medicine; Visit Provider Physician Assistant Surgical ==

== ENCOUNTER → 2021-03-15 13:02 | Outpatient (BNVA) | payer BC, SELFPAY | PROVIDERS: PCP Family Medicine; Referring Provider Family Medicine; Visit Provider Physician Assistant Surgical ==

== ENCOUNTER 2021-04-04 17:56 | Outpatient (REF) | payer BC, SELFPAY ==
[2021-04-04 18:26] LABS: Appearance Urine CLEAR; Color Urine YELLOW; Glucose Urine UA NEG (NEG); Leukocyte Esterase Urine 1+ (NEG); Nitrite Urine NEG (NEG); Urine Blood 2+ (NEG); Urine Ketones NEG (NEG); Urine Protein NEG (NEG-TRACE)
[2021-04-04 18:48] LABS: Bacteria Urine 1+ /LPF; Squamous Epithelial Cell Urine 3+ /LPF
== END 2021-04-04 17:57 | disposition home or self-care (01) ==
LOC: HO.LNP 17:56
PROVIDERS: Visit Provider Family Medicine
DX: R10.9 Unspecified abdominal pain (principal)
CPT/HCPCS: 81001

== ENCOUNTER 2021-07-19 07:59 | Outpatient (REF) | payer BC, SELFPAY ==
[2021-07-19 11:24] LABS: MANUAL DIFF FLAG NO
[2021-07-19 11:37] LABS: Basophils Percent Auto 0.7 % (0-2); Eosinophils Absolute Auto 0.1 X10*3/uL (0.0-0.4); Eosinophils Percent Auto 1.5 % (0-4); Hematocrit 37.1 % (37.0-47.0); Hemoglobin 11.8 g/dl (12.0-16.0); Imm Gran Abs Auto 0.01 X10*3/uL (0.00-0.03); Imm Gran Pct Auto 0.2 % (0.0-0.4); Lymphocytes Absolute Auto 2.2 X10*3/uL (1.2-4.9); Lymphocytes Percent Auto 39.4 % (20-40); Mean Corpuscular HGB Conc 31.8 g/dl (31.0-35.0); Mean Corpuscular Hemoglobin 28.7 pg (27.0-33.0); Mean Corpuscular Volume 90.3 fL (80.0-98.0); Mean Platelet Volume 9.8 fL (9.4-12.3); Monocytes Absolute Auto 0.3 X10*3/uL (0.1-1.2); Neutrophils Absolute Auto 2.9 x10*3/uL (2.0-8.3); Neutrophils Percent Auto 52.2 % (45-73); Platelet Count 415 X10*3/uL (160-400); Red Blood Count 4.11 X10*6/uL (4.20-5.50); Red Cell Distribution Width 12.2 % (11.0-16.0); White Blood Count 5.5 X10*3/uL (4.8-10.8)
[2021-07-19 11:54] LABS: Alanine Aminotransferase 90 U/L (0-31); Albumin Level 3.8 g/dL (3.5-5.0); Alkaline Phosphatase 130 U/L (39-117); Anion Gap 11 (12-20); Aspartate Amino Transferase 21 U/L (5-31); Bilirubin Total 0.5 mg/dL (0.0-1.0); Blood Urea Nitrogen 11 mg/dL (9-16); Calcium 9.1 mg/dL (8.4-10.2); Carbon Dioxide 26 mmol/L (22-29); Chloride 108 mmol/L (96-108); Cholesterol 174 mg/dL; Estimated Glomerular Filt Rate > 60; Glucose Fasting 92 mg/dL (60-99); HDL Cholesterol 42 mg/dL; LDL Cholesterol Calculated 119 mg/dl; Sodium 141 mmol/L (135-145); Total Protein 6.7 g/dL (6.5-8.0); Triglycerides 65 mg/dL
[2021-07-19 12:04] LABS: TSH reflex Free T4 1.38 uIU/mL (0.32-4.0)
[2021-07-19 12:21] LABS: Folate 17.8 ng/mL (> or = 4.0); Vitamin B12 768 pg/mL (200-900)
[2021-07-19 12:22] LABS: Appearance Urine HAZY; Color Urine YELLOW; Glucose Urine UA NEG (NEG); Leukocyte Esterase Urine TRACE (NEG); Nitrite Urine NEG (NEG); Specific Gravity - Urine 1.025 (1.005-1.025); Urine Blood NEG (NEG); Urine Ketones NEG (NEG); Urine Protein NEG (NEG-TRACE)
[2021-07-19 12:37] LABS: RBC Urine 0-2 /HPF (0); Squamous Epithelial Cell Urine 1+ /LPF
[2021-07-19 12:38] LABS: Bacteria Urine TRACE /LPF; Calcium Oxalate Crystals Urine TRACE /LPF; Mucus Urine 1+ /LPF
[2021-07-19 12:59] LABS: Creatinine Urine 239.88 mg/dL; Microalbum/Creatinine Ratio Ur 12.5 ug/mg cr
== END 2021-07-19 08:00 | disposition home or self-care (01) ==
LOC: HO.WFDLDS 07:59
PROVIDERS: Visit Provider Family Medicine
DX: Z00.00 Encounter for general adult medical examination without abnormal findings (principal); I10 Essential (primary) hypertension; E53.8 Deficiency of other specified B group vitamins
CPT/HCPCS: 36415; 80053; 80061; 81001; 81003; 82043; 82607; 82746; 84443; 85025

== ENCOUNTER 2021-08-15 15:33 | Outpatient (REF) | payer BC, SELFPAY ==
--- NOTE | ~2021-08-15 | MM_ITS ---
EXAMINATION: MM SCREENING DIGITAL BREAST TOMOSYNTHESIS, BILATERAL CLINICAL INFORMATION: Screening. Asymptomatic. The lifetime risk of breast cancer based on the Tyrer-Cuzick Model is 17%. COMPARISON: Outside mammography: 08/23/2020, 02/03/2019 ([facility]) TECHNIQUE: Digital breast tomosynthesis is performed in both the craniocaudal and mediolateral oblique views along with computer-aided detection (CAD). Synthesized 2D images are generated from the tomosynthesis. FINDINGS: There are scattered areas of fibroglandular density (ACR BI-RADS breast composition Category b). There are no significant masses, abnormal calcifications, or other abnormalities. Parenchymal pattern is similar to prior studies and there is no developing density or interval architectural abnormality. The axilla and skin contours are unremarkable. MM/MM tomosynthesis screening BI IMPRESSION: No mammographic evidence of malignancy. ASSESSMENT: BI-RADS 1: Negative RECOMMENDATION: Routine annual mammography screening. This patient's information was entered into a reminder system with a target due date for their next mammogram.
== END 2021-08-15 15:34 | disposition home or self-care (01) ==
LOC: HO.MAMMO 15:33
PROVIDERS: Visit Provider Family Medicine
DX: Z12.31 Encounter for screening mammogram for malignant neoplasm of breast (principal)
CPT/HCPCS: 77063; 77067

== ENCOUNTER 2021-09-18 12:12 | Outpatient (REF) | payer BC, SELFPAY ==
[2021-09-18 13:41] LABS: Alanine Aminotransferase 54 U/L (0-31); Albumin Level 4.2 g/dL (3.5-5.0); Alkaline Phosphatase 114 U/L (39-117); Anion Gap 13 (12-20); Aspartate Amino Transferase 16 U/L (5-31); Bilirubin Total 0.4 mg/dL (0.0-1.0); Blood Urea Nitrogen 10 mg/dL (9-16); Calcium 9.4 mg/dL (8.4-10.2); Carbon Dioxide 25 mmol/L (22-29); Chloride 108 mmol/L (96-108); Estimated Glomerular Filt Rate > 60; Glucose Random 85 mg/dL (60-115); Iron 48 mcg/dL (30-160); Percent Iron Saturation 13 % (15-50); Potassium 4.3 mmol/L (3.3-5.1); Sodium 142 mmol/L (135-145); Total Iron Binding Capacity 360 mcg/dL (228-428); Total Protein 7.1 g/dL (6.5-8.0); Unsaturated Iron Binding 312 ug/dL
[2021-09-18 14:02] LABS: Vitamin D 25-OH Total 21.4 ng/mL (>30)
[2021-09-18 14:16] LABS: Folate 13.7 ng/mL (> or = 4.0); Vitamin B12 685 pg/mL (200-900)
[2021-09-24 01:16] LABS: Zinc 81 mcg/dL (60-130)
[2021-09-25 07:46] LABS: Vitamin B1 7 nmol/L (8-30)
[2021-09-25 17:02] LABS: Vitamin A 37 mcg/dL (38-98)
== END 2021-09-18 12:13 | disposition home or self-care (01) ==
LOC: HO.LAB 12:12
PROVIDERS: Physician Assistant Surgical; PCP Family Medicine; Visit Provider Advanced Practice Midwife
DX: E66.9 Obesity, unspecified (principal); Z98.84 Bariatric surgery status
CPT/HCPCS: 36415; 80053; 82306; 82607; 82746; 83540; 84425; 84590; 84630

== ENCOUNTER 2022-02-28 10:50 | Outpatient (REF) | payer OTHER, BC, SELFPAY ==
[2022-02-28 13:47] LABS: MANUAL DIFF FLAG NO
[2022-02-28 13:53] LABS: Basophils Percent Auto 0.5 % (0-2); Eosinophils Absolute Auto 0.1 X10*3/uL (0.0-0.4); Eosinophils Percent Auto 1.7 % (0-4); Hematocrit 38.6 % (37.0-47.0); Hemoglobin 12.4 g/dl (12.0-16.0); Imm Gran Abs Auto 0.02 X10*3/uL (0.00-0.03); Imm Gran Pct Auto 0.3 % (0.0-0.4); Lymphocytes Absolute Auto 2.2 X10*3/uL (1.2-4.9); Lymphocytes Percent Auto 37.7 % (20-40); Mean Corpuscular HGB Conc 32.1 g/dl (31.0-35.0); Mean Corpuscular Volume 90.4 fL (80.0-98.0); Mean Platelet Volume 9.9 fL (9.4-12.3); Monocytes Absolute Auto 0.3 X10*3/uL (0.1-1.2); Monocytes Percent Auto 4.2 % (2-11); Neutrophils Absolute Auto 3.3 x10*3/uL (2.0-8.3); Neutrophils Percent Auto 55.6 % (45-73); Platelet Count 342 X10*3/uL (160-400); Red Blood Count 4.27 X10*6/uL (4.20-5.50); Red Cell Distribution Width 12.4 % (11.0-16.0); White Blood Count 5.9 X10*3/uL (4.8-10.8)
[2022-02-28 14:10] LABS: Anion Gap 12 (12-20); Blood Urea Nitrogen 9 mg/dL (9-16); Calcium 9.5 mg/dL (8.4-10.2); Carbon Dioxide 26 mmol/L (22-29); Chloride 108 mmol/L (96-108); Estimated Glomerular Filt Rate > 60; Glucose Random 95 mg/dL (60-115); Potassium 4.2 mmol/L (3.3-5.1); Sodium 142 mmol/L (135-145)
[2022-03-03 09:43] LABS: HBS Num1 0.85 mIU/mL (0-7.99); HBc Num1 0.07 S/CO (0.00-0.79); HBsAGNum1 0.33 S/CO (0.00-0.99); HIV AB/AG Nonreactive (Nonreactive); HIV Num 1 0.05 S/CO (0.00-0.99); Hepatitis B Core Antibody Nonreactive (Nonreactive); Hepatitis B Surface Antigen Negative (Negative); ~HepC Num1 0.08 S/CO (0.00-0.79); ~Hepatitis B Surface Antibody NONREACTIVE (Nonreactive); ~Hepatitis C Antibody Nonreactive (Nonreactive)
== END 2022-02-28 10:51 | disposition home or self-care (01) ==
LOC: HO.WFDLDS 10:50
PROVIDERS: Visit Provider Family Medicine
DX: Z00.00 Encounter for general adult medical examination without abnormal findings (principal); Z11.3 Encounter for screening for infections with a predominantly sexual mode of transmission; Z11.4 Encounter for screening for human immunodeficiency virus [HIV]; W46.1XXA Contact with contaminated hypodermic needle, initial encounter
CPT/HCPCS: 36415; 80048; 85025; 86704; 86706; 86803; 87340; 87389

== ENCOUNTER → 2022-05-15 15:11 | Outpatient (BNVA) | payer BC, SELFPAY | PROVIDERS: PCP Family Medicine; Visit Provider Physician Assistant Surgical | DX: E66.9 Obesity, unspecified (principal) | CPT/HCPCS: 99212 ==

== ENCOUNTER 2022-05-19 13:11 | Outpatient (REF) | payer OTHER, BC, SELFPAY ==
[2022-05-19 13:22] LABS: MANUAL DIFF FLAG NO
[2022-05-19 14:13] LABS: Basophils Percent Auto 0.5 % (0-2); Eosinophils Absolute Auto 0.1 X10*3/uL (0.0-0.4); Eosinophils Percent Auto 1.9 % (0-4); Hematocrit 39.4 % (37.0-47.0); Hemoglobin 12.5 g/dl (12.0-16.0); Imm Gran Abs Auto 0.02 X10*3/uL (0.00-0.03); Imm Gran Pct Auto 0.3 % (0.0-0.4); Lymphocytes Absolute Auto 2.8 X10*3/uL (1.2-4.9); Lymphocytes Percent Auto 38.4 % (20-40); Mean Corpuscular HGB Conc 31.7 g/dl (31.0-35.0); Mean Corpuscular Hemoglobin 28.8 pg (27.0-33.0); Mean Corpuscular Volume 90.8 fL (80.0-98.0); Mean Platelet Volume 9.8 fL (9.4-12.3); Monocytes Absolute Auto 0.3 X10*3/uL (0.1-1.2); Monocytes Percent Auto 4.7 % (2-11); Neutrophils Percent Auto 54.2 % (45-73); Platelet Count 364 X10*3/uL (160-400); Red Blood Count 4.34 X10*6/uL (4.20-5.50); White Blood Count 7.3 X10*3/uL (4.8-10.8)
[2022-05-19 15:06] LABS: Anion Gap 15 (12-20); Blood Urea Nitrogen 12 mg/dL (9-16); Calcium 9.4 mg/dL (8.4-10.2); Carbon Dioxide 23 mmol/L (22-29); Chloride 107 mmol/L (96-108); Estimated Glomerular Filt Rate > 60; Glucose Random 114 mg/dL (60-115); Potassium 4.5 mmol/L (3.3-5.1); Sodium 140 mmol/L (135-145)
[2022-05-21 04:41] LABS: HBS Num1 1.33 mIU/mL (0-7.99); HBc Num1 0.07 S/CO (0.00-0.79); HBsAGNum1 0.35 S/CO (0.00-0.99); HIV AB/AG Nonreactive (Nonreactive); HIV Num 1 0.09 S/CO (0.00-0.99); Hepatitis B Core Antibody Nonreactive (Nonreactive); Hepatitis B Surface Antigen Negative (Negative); ~HepC Num1 0.11 S/CO (0.00-0.79); ~Hepatitis B Surface Antibody NONREACTIVE (Nonreactive); ~Hepatitis C Antibody Nonreactive (Nonreactive)
== END 2022-05-19 13:12 | disposition home or self-care (01) ==
LOC: HO.LAB 13:11
PROVIDERS: PCP Family Medicine; Visit Provider Family Medicine
DX: Z00.00 Encounter for general adult medical examination without abnormal findings (principal); W46.1XXA Contact with contaminated hypodermic needle, initial encounter; Z20.2 Contact with and (suspected) exposure to infections with a predominantly sexual mode of transmission
CPT/HCPCS: 36415; 80048; 85025; 86704; 86706; 86803; 87340; 87389

== ENCOUNTER 2022-09-03 13:11 | Outpatient (REF) | payer BC, SELFPAY ==
[2022-09-03 13:57] LABS: PLT CLUMP 1; Red Cell Distribution Width 12.3 % (11.0-16.0); SCAN SMEAR FLAG 1
[2022-09-03 13:59] LABS: Basophils Percent Auto 0.5 % (0-2); Eosinophils Absolute Auto 0.1 X10*3/uL (0.0-0.4); Eosinophils Percent Auto 1.6 % (0-4); Hematocrit 36.7 % (37.0-47.0); Hemoglobin 11.7 g/dl (12.0-16.0); Imm Gran Abs Auto 0.01 X10*3/uL (0.00-0.03); Imm Gran Pct Auto 0.2 % (0.0-0.4); Lymphocytes Absolute Auto 2.2 X10*3/uL (1.2-4.9); Lymphocytes Percent Auto 35.7 % (20-40); MANUAL DIFF FLAG SCAN; Mean Corpuscular HGB Conc 31.9 g/dl (31.0-35.0); Mean Corpuscular Hemoglobin 28.3 pg (27.0-33.0); Mean Corpuscular Volume 88.6 fL (80.0-98.0); Mean Platelet Volume 10.8 fL (9.4-12.3); Monocytes Absolute Auto 0.3 X10*3/uL (0.1-1.2); Monocytes Percent Auto 4.9 % (2-11); Neutrophils Absolute Auto 3.5 x10*3/uL (2.0-8.3); Neutrophils Percent Auto 57.1 % (45-73); Red Blood Count 4.14 X10*6/uL (4.20-5.50)
[2022-09-03 14:26] LABS: Platelet Count 204 X10*3/uL (160-400); White Blood Count 6.1 X10*3/uL (4.8-10.8)
[2022-09-03 14:27] LABS: SLIDE REVIEW VERIFIED
[2022-09-03 14:44] LABS: Cholesterol 175 mg/dL; HDL Cholesterol 48 mg/dL; LDL Cholesterol Calculated 108 mg/dl; Triglycerides 96 mg/dL
[2022-09-03 14:51] LABS: Alanine Aminotransferase 27 U/L (0-31); Alkaline Phosphatase 106 U/L (39-117); Anion Gap 13 (12-20); Aspartate Amino Transferase 25 U/L (5-31); Bilirubin Total 0.5 mg/dL (0.0-1.0); Blood Urea Nitrogen 11 mg/dL (9-16); C Reactive Protein 0.38 mg/dL (< or = 0.50); Calcium 9.8 mg/dL (8.4-10.2); Carbon Dioxide 25 mmol/L (22-29); Chloride 108 mmol/L (96-108); Cholesterol 177 mg/dL; Estimated Glomerular Filt Rate > 60; Glucose Fasting 81 mg/dL (60-99); HDL Cholesterol 47 mg/dL; Iron 66 mcg/dL (30-160); LDL Cholesterol Calculated 111 mg/dl; Percent Iron Saturation 23 % (15-50); Potassium 3.9 mmol/L (3.3-5.1); Sodium 142 mmol/L (135-145); Total Iron Binding Capacity 292 mcg/dL (228-428); Triglycerides 96 mg/dL; Unsaturated Iron Binding 226 ug/dL
[2022-09-03 15:02] LABS: Ferritin 69 ng/mL (10-250); Insulin 6 uU/mL (2-29); TSH reflex Free T4 1.48 uIU/mL (0.32-4.0); Vitamin D 25-OH Total 23.6 ng/mL (>30)
[2022-09-03 15:02] LABS: Appearance Urine Clear; Color Urine Dark Yellow; Glucose Urine UA Negative (Negative); Leukocyte Esterase Urine Negative (Negative); Nitrite Urine Negative (Negative); PH 5.5 (5.0-9.0); Specific Gravity - Urine >= 1.030 (1.005-1.025); Urine Blood Negative (Negative); Urine Ketones Trace mg/dL (Negative); Urine Protein Trace mg/dL (Neg-Trace)
[2022-09-03 15:15] LABS: Folate 15.7 ng/mL (> or = 4.0); Vitamin B12 618 pg/mL (200-900)
[2022-09-03 16:27] LABS: Creatinine Urine 357.28 mg/dL; Microalbum/Creatinine Ratio Ur 7.8 ug/mg cr
[2022-09-04 07:24] LABS: Estimated Average Glucose 100 mg/dL; Hemoglobin A1C 99.5033 umol/L; Hemoglobin A1c % 5.1 %
[2022-09-04 13:37] LABS: Calcium (PTHI) 9.2 mg/dL (8.6-10.2); PTHI 119 pg/mL (16-77)
[2022-09-05 06:19] LABS: HBS Num1 0.79 mIU/mL (0-7.99); HBc Num1 0.14 S/CO (0.00-0.79); HBsAGNum1 3.48 S/CO (0.00-0.99); HIV AB/AG Nonreactive (Nonreactive); HIV Num 1 0.06 S/CO (0.00-0.99); Hepatitis B Core Antibody Nonreactive (Nonreactive); ~HepC Num1 0.08 S/CO (0.00-0.79); ~Hepatitis B Surface Antibody NONREACTIVE (Nonreactive); ~Hepatitis C Antibody Nonreactive (Nonreactive)
[2022-09-05 09:05] LABS: HBsAGNum2 Reactive; HBsAGNum3 Reactive; Hepatitis B Surface Antigen Retest CNFM (Negative)
[2022-09-09 07:33] LABS: Zinc 76 mcg/dL (60-130)
[2022-09-09 07:53] LABS: Vitamin B1 6 nmol/L (8-30)
[2022-09-09 13:42] LABS: HBsAG REACTIVE
[2022-09-10 11:58] LABS: Vitamin A 42 mcg/dL (38-98)
== END 2022-09-03 13:12 | disposition home or self-care (01) ==
LOC: HO.LAB 13:11
PROVIDERS: Absent Provider Family Medicine; PCP Family Medicine; Visit Provider Physician Assistant Surgical
DX: Z00.00 Encounter for general adult medical examination without abnormal findings (principal); Z11.3 Encounter for screening for infections with a predominantly sexual mode of transmission; Z11.4 Encounter for screening for human immunodeficiency virus [HIV]; I10 Essential (primary) hypertension; Z98.84 Bariatric surgery status
CPT/HCPCS: 36415; 80053; 80061; 81003; 82043; 82306; 82607; 82728; 82746; 83036; 83525; 83540; 83970; 84425; 84443; 84590; 84630; 85025; 86140; 86704; 86706; 86803; 87340; 87389

== ENCOUNTER 2022-11-19 14:53 | Outpatient (AMB) | payer BC, SELFPAY ==
--- NOTE | 2022-11-19 14:56 | MHC.PC.OV ---
Vital Signs 11/19/22 14:58 Height 5 ft 3 in Weight 231 lb 2 oz BMI 40.9 BP 108/64 Blood Pressure Location Lt brachial Position Sitting Respiration 14 Pulse 73 Pulse Source Pulse Oximeter Temp 98.9 F Temp Source Oral Pulse Oximetry (%) 98 Oxygen Delivery Method Room Air Intake Visit Reasons: Annual PE Intake Note: Patient reports she is here for her physical. Patient states she stopped taking her buproprion because it didn't do what I wanted it to do. Patient states she did not experience side effects of the medications, however she did not believe it was helpful. Pst Manager Required: No Accompanied by: Self / Same As Patient Allergies Sulf-10 Allergy (Intermediate, Uncoded 05/29/22 14:16) Itching, skin crawls latex Adverse Reaction (Unknown, Uncoded 05/29/22 14:16) Blister Tobacco use date assessed: 11/19/22 HPI Annual PE HPI Details 47 y/o female presents for a CPE with f/u labs and health maintenance. Labs were drawn 09/03/22. Reviewed labs with pt. Mild anemia. Triglycerides 96. TC 175. LDL 108. HDL 48. A1c 5.1%. Patient states she stopped taking her buproprion because it didn't do what I wanted it to do. Patient states she did not experience side effects of the medications, however she did not believe it was helpful. She had initially been using buproprion for weight loss. Pt reports she does go to the bathroom a lot with high volumes. HPI Comments History of Present Illness Details Documentation assistance for Stu Landaverde MD, was provided by Brandon Walker,?[employer] on 11/19/2022 3:52 PM EST. I, Dr. Landaverde, have read, observed, and verified documentation.? PFSH Medical History PCOS (polycystic ovarian syndrome) Diabetes Liver fibrosis Steatosis, liver GERD (gastroesophageal reflux disease) Arthritis Back pain HTN (hypertension) DONAVAN on CPAP Family planning Pre-op evaluation Anemia Vitamin D deficiency Surgical History Hx of cholecystectomy History of sleeve gastrectomy History of laparoscopy Morbid obesity History of left oophorectomy Umbilical hernia Family History Father Renal failure Mother Diabetes Hypothyroid Brother No problems noted. Sister No problems noted. Sister No problems noted. Social History Household Members Other:: 2 Foster children Are you a primary career guidance counselor to a significant other at home: Yes (2 foster children will be cared for by others for 1 week after surgery) Do you presently have visiting nurse or other home services: No Alcohol intake: current Alcohol intake frequency: holidays/special occasions only Patient Tobacco Use Status: Never used Tobacco e-Cigarette/Vaping Use: Never Used Second Hand Smoke Exposure: No service: No Current occupational status: employed Current occupational exposures/hazards: No Cognitive needs: No Hearing needs: No Vision needs: No Questionnaire SERG-7 AMB Questionnaire SERG-7 Date SERG - 7 assessed: 02/11/22 Source: Developed by Drs. Fidencio Andrew, Veronique Diehl, Zain Barnes and colleagues, with an educational tommy from [employer]. Review of Systems Const Denies chills, Denies fatigue, Denies fever(s), Denies headache(s) and Denies weakness Eyes Denies change in vision ENT Denies dizziness, Denies headache(s), Denies hearing loss, Denies nasal congestion, Denies sinus pain, Denies sinus pressure and Denies sore throat Card Denies chest pain, Denies lightheadedness, Denies dyspnea and Denies other (palpitations) Resp Denies cough, Denies dyspnea and Denies wheezing GI Denies abdominal pain, Denies melena, Denies hematochezia, Denies change in bowel habits, Denies dyspepsia and Denies nausea Denies hematuria and Denies dysuria Musc Denies abnormal gait, Denies myalgias, Denies arthralgias, Denies numbness and Denies tingling Skin/Breast Denies rash, Denies unusual bruising and Denies wounds Neuro Denies abnormal gait, Denies dizziness, Denies headache(s), Denies memory loss, Denies numbness, Denies Sensory deficit (Neuro), Denies tingling and Denies weakness Psych Denies anxiety, Denies depression and Denies memory loss Endo Denies cold intolerance, Denies fatigue, Denies heat intolerance, Denies polydipsia and Denies polyuria Antonio/Lymph Denies easy bleeding and Denies easy bruising Aller/Immun Denies wheezing Physical exam (Primary Care) Vital Signs: Last Vital Signs Temp 98.9 F 11/19/22 14:58 Pulse 73 11/19/22 14:58 Resp 14 11/19/22 14:58 BP 108/64 11/19/22 14:58 Pulse Ox 98 11/19/22 14:58 Oxygen Delivery Method Room Air 11/19/22 14:58 BMI result Body Mass Index 40.9 Tobacco/Smoking Status: Tobacco use Status Tobacco use date assessed 11/19/22 11/19/22 15:06 Patient Tobacco Use Status Never used Tobacco 11/19/22 14:58 e-Cigarette/Vaping Use Never Used 11/19/22 14:58 Const General: no acute distress, well developed, alert and awake Nutritional Appearance: well nourished Orientation/consciousness: patient oriented x3 HENMT Head: Yes normocephalic and Yes atraumatic Ears: hearing grossly normal bilaterally and TM's normal bilaterally General nose exam: Normal external nose present and Normal nares present Mouth: Normal oral and palatal mucosa present and moist mucous membranes Teeth and gingiva: dentition normal Throat: Yes posterior oropharynx normal Eyes General: appearance normal, both eyes and all related structures Pupils: Equal, round and reactive pupils present and Pupil accommodation reflex normal EOM: EOMs intact bilaterally Neck Neck: Yes normal visual inspection, Yes no lymphadenopathy and Yes trachea midline Thyroid: Thyroid normal Carotids: no bruits Lymphatic: no lymphadenopathy noted Chest Chest palpation & inspection: normal inspection of the chest Resp Effort & Inspection: normal respiratory effort Auscultation: clear to auscultation bilaterally Cardio Rate: regular rate Rhythm: regular rhythm Heart sounds: S1 normal heart sound present, S2 normal heart sound present, no gallops, no murmurs and no rubs Bruits: no abdominal aortic bruits and no carotid bruits GI Palpation (GI): No Abdominal aortic bruit present, Soft to palpation, nontender, No hepatosplenomegaly present and No Rebound tenderness present Auscultation: normal bowel sounds General: Yes no CVA tenderness Back/Spine/Pelvis Back: no CVA tenderness Cervical Spine: cervical ROM normal and No Cervical spine tenderness Thoracic/Lumbar Spine: thoraco-lumbar ROM normal, No pain with thoraco-lumbar ROM, No thoracic spinal tenderness and No lumbar spinal tenderness Skin Lesions: no lesions Rashes: no rashes Trauma: no lacerations or abrasions Wounds: no wounds Nails: normal Neuro General: patient oriented x3 Cranial nerves: Yes Equal, round and reactive pupils present Cognition (Neuro): normal cognition Gait exam (Neuro): Normal gait present Motor exam (neuro): 5/5 motor strength present throughout Sensory Exam: No Sensory deficit (Neuro) Deep tendon reflexes (DTR's): Right patellar reflex intensity grade: 2+ and Left patellar reflex intensity grade: 2+ Extrem General: Yes normal to inspection and No edema Psych Appearance: grossly normal Affect: normal affect Attitude: cooperative Thought process: Normal thought process present Assessment and Plan Assessment & Plan (1) Adult general medical exam: Code(s): Z00.00 - Encounter for general adult medical examination without abnormal findings Plan: 47-year-old?female?presents?for?complete?physical?exam (2) Morbid obesity: Code(s): E66.01 - Morbid (severe) obesity due to excess calories Plan: Status?post?bariatric?surgery. Patient?is?still?interested?in?medications?to?help?with?this?but?does?not?want?to?use?a?GLP?1?medication Advised?she?discuss?with?her?bariatric?team (3) Mild anemia: Code(s): D64.9 - Anemia, unspecified Plan: Likely?secondary?to?menstruation Will?repeat?with?her?next?lab?draw (4) Essential hypertension: Code(s): I10 - Essential (primary) hypertension Plan: Blood?pressure?is?controlled.??Goal?is?less?than?140/90 Continue?she?medication (5) Elevated parathyroid hormone: Code(s): R79.89 - Other specified abnormal findings of blood chemistry Plan: Will?repeat?this.??Calcium?levels?are?within?normal?limits Orders: Orders Complete Blood Count Auto Diff Today Z00.00 - Encounter for general adult medical examination without abnormal findings Basic Metabolic Panel Today Z00.00 - Encounter for general adult medical examination without abnormal findings PTHI Today R79.89 - Other specified abnormal findings of blood chemistry Medications: Changed From cholecalciferol (vitamin D3) 50 mcg PO DAILY 90 caps 3RF To cholecalciferol (vitamin D3) 50 mcg PO DAILY 90 days 90 caps 3RF Coding Level of Care Code Est Pt Level 3 (74641) Est Pt Prev Care 40-64y(86523) Diagnoses Adult general medical exam Z00.00 Morbid obesity E66.01 Mild anemia D64.9 Essential hypertension I10 Elevated parathyroid hormone R79.89
[2022-11-19 14:58] VITALS: BP 108/64; PULSE 73; RESP 14; TEMP 37.2; O2SAT 98; BMI 40.9
== END 2022-11-19 16:05 | disposition home or self-care (01) ==
PROVIDERS: PCP Family Medicine; Visit Provider Family Medicine
DX: Z00.00 Encounter for general adult medical examination without abnormal findings (principal); E66.01 Morbid (severe) obesity due to excess calories; Z68.41 Body mass index [BMI] 40.0-44.9, adult; D64.9 Anemia, unspecified; I10 Essential (primary) hypertension; R79.89 Other specified abnormal findings of blood chemistry
CPT/HCPCS: 99396

== ENCOUNTER 2023-01-19 14:28 | Outpatient (AMB) | payer BC, SELFPAY ==
[2023-01-19 14:36] VITALS: BP 123/82; PULSE 93; BMI 40.9
--- NOTE | 2023-01-19 14:36 | A.OFFVIS_ITS ---
Intake Vital Signs 01/19/23 14:36 Height 5 ft 3 in Weight 231 lb 0.711 oz BMI 40.9 BP 123/82 Blood Pressure Location Lt brachial Position Sitting Pulse 93 Intake Visit Reasons: Colonoscopy Screening Intake Note: Patient presents to in office visit today as a new patient for colonoscopy screening. CC: Patient reports having lose stools ever since she had gastric bypass surgery. She also reports acid reflux and heartburn. Patient has never had colonoscopy done. Denies other GI symptoms today. Allergies Sulfa (Sulfonamide Antibiotics) Allergy (Severe, Verified 01/19/23 14:40) Itching Sulf-10 Allergy (Intermediate, Uncoded 05/29/22 14:16) Itching, skin crawls latex Adverse Reaction (Unknown, Uncoded 05/29/22 14:16) Blister HPI Colonoscopy Screening HPI Details 47 year old? female with past medical hi story of diabetes, PCOS, hepatomegaly, arthritis, diaphragmatic hernia is here today for pre colonoscopy screening.? Patient was sent to us by her PCP.? This is her first colonoscopy screening.? Patient denies any gastrointestinal symptoms in the past or at present.? However patient does admit postprandial loose stools since her bariatric surgery. Denies any personal or family history of gastrointestinal disease, colon polyps, or cancer.? Denies history of difficulty with sedation or anesthesia in the past.? Patient was diagnosed with sleep apnea 4 years ago since then patient had bariatric surgery about 2 years ago and reports no issues.? Denies any history of cardiac, renal, pulmonary, or hepatic disease.?? No history of infectious? diseases like hepatitis A, B, C, HIV or tuberculosis.? Patient is not on any anticoagulation therapy. [facility] Medical History PCOS (polycystic ovarian syndrome) Diabetes Liver fibrosis Steatosis, liver GERD (gastroesophageal reflux disease) Arthritis Back pain HTN (hypertension) DONAVAN on CPAP Family planning Pre-op evaluation Anemia Vitamin D deficiency Surgical History Hx of cholecystectomy History of sleeve gastrectomy History of laparoscopy Morbid obesity History of left oophorectomy Umbilical hernia Family History Father Renal failure Mother Diabetes Hypothyroid Brother No problems noted. Sister No problems noted. Sister No problems noted. Maternal Grandmother Breast cancer Household Members Other:: 2 Foster children Are you a primary regular senior care provider to a significant other at home: Yes (2 foster children will be cared for by others for 1 week after surgery) Do you presently have visiting nurse or other home services: No Alcohol intake: current Alcohol intake frequency: holidays/special occasions only Patient Tobacco Use Status: Never used Tobacco e-Cigarette/Vaping Use: Never Used Second Hand Smoke Exposure: No service: No Current occupational status: employed Current occupational exposures/hazards: No Cognitive needs: No Hearing needs: No Vision needs: No Review of Systems Const Denies weight gain and Denies weight loss ENT Reports no additional complaints, Denies dysphagia and Denies odynophagia Card Reports no additional complaints Resp Reports no additional complaints GI Denies abdominal pain, Denies belching, Denies melena, Denies bloating, Denies change in bowel habits, Denies dysphagia, Denies excessive flatus, Denies dyspepsia, Denies heartburn, Denies diarrhea, Reports loose stools (occasional), Denies nausea, Denies odynophagia and Denies vomiting Reports no additional complaints Musc Reports no additional complaints Neuro Reports no additional complaints Psych Reports no additional complaints Endo Reports no additional complaints Physical Exam Vital Signs: Last Vital Signs Pulse 93 01/19/23 14:36 BP 123/82 01/19/23 14:36 BMI result Body Mass Index 40.9 Const General: healthy appearing, no acute distress and well developed Nutritional Appearance: obese Orientation/consciousness: patient oriented x3 HEENT Head: Yes normal to inspection, Yes normocephalic and Yes atraumatic Face and sinus: Yes normal facial exam Mouth: Normal oral and palatal mucosa present Throat: Yes posterior oropharynx normal, Yes tonsils normal and Yes uvula midline Eyes General: appearance normal, both eyes and all related structures Neck Neck: Yes normal visual inspection, Yes full ROM and Yes trachea midline Thyroid: Thyroid normal Resp Effort & Inspection: normal respiratory effort, able to speak in complete sentences, no tracheal deviation and symmetric chest movement Auscultation: clear to auscultation bilaterally Cardio Rate: regular rate Heart sounds: S1 normal heart sound present and S2 normal heart sound present GI Inspection: Yes normal to inspection, No distended and Yes obesity Palpation (GI): Soft to palpation, not firm, nontender and No hepatosplenomegaly present Auscultation: normal bowel sounds General: Yes no CVA tenderness Back/Spine/Pelvis Back: no CVA tenderness Skin General skin exam: elasticity normal, turgor normal and dry skin Neuro General: patient oriented x3 Psych Appearance: grossly normal Mental Status: mental status grossly normal Assessment & Plan Assessment & Plan (1) Screening for colon cancer: Code(s): Z12.11 - Encounter for screening for malignant neoplasm of colon Plan Patient denies any cardiac or respiratory symptoms.? Denies any issues with anesthesia in the past. History of sleep apnea, no longer needs to use CPAP. ? No history infectious diseases in the past or present.? Not on any anticoagulation therapy.? No family or personal history of colon cancer or polyps.? Patient denies melena, hematochezia, unintentional weight loss or ribbon like stools.? Discussed at length the pre-procedure,? prep, diet & medications as well as what to expect prior, during and after the procedure.?? Stressed the importance of good bowel prep. ?Recommended the use of Vaseline or Calmoseptine OTC & baby wipes with bowel movements to promote comfort.? ?Patient verbalizes understanding and agrees to plan of care.? She was given the opportunity to ask questions and all questions answered.? We will see her after the procedure.? Medications: New bisacodyl (Dulcolax (bisacodyl)) take 4 tabs at noon the day before your colonoscopy 20 mg (4 x 5 mg) PO ONCE 1 day 4 tabs 0RF Z12.11 - Encounter for screening for malignant neoplasm of colon polyethylene glycol 3350 (Miralax) As directed by gastroenterology department at [facility] 238 grams PO ONCE 238 grams 0RF Z12.11 - Encounter for screening for malignant neoplasm of colon Coding Level of Care Code New Pt Level 3 (91106) Diagnoses Screening for colon cancer Z12.11 Time Spent (min) 40 Comment 30 minutes spent with patient and additional 10 minutes spent reviewing her records
== END 2023-01-19 15:24 | disposition home or self-care (01) ==
PROVIDERS: PCP Family Medicine; Visit Provider Nurse Practitioner Family
DX: Z01.818 Encounter for other preprocedural examination (principal); Z12.11 Encounter for screening for malignant neoplasm of colon
CPT/HCPCS: S0285

== ENCOUNTER → 2023-01-19 14:28 | Outpatient (BNVA) | payer BC, SELFPAY | PROVIDERS: PCP Family Medicine; Visit Provider Nurse Practitioner Family ==

== ENCOUNTER 2023-01-20 10:48 | Outpatient (AMB) | payer BC, SELFPAY ==
[2023-01-20 12:01] VITALS: BP 120/78; PULSE 97; TEMP 36.8; O2SAT 97; BMI 41.4
--- NOTE | 2023-01-20 12:01 | MHC.OFFWIV ---
Intake Vital Signs 01/20/23 12:01 Height 5 ft 3 in Weight 234 lb BMI 41.4 BP 120/78 Blood Pressure Location Rt brachial Position Sitting Pulse 97 Pulse Source Pulse Oximeter Temp 98.2 F Temp Source Temporal Artery Scan Pulse Oximetry (%) 97 Oxygen Delivery Method Room Air Intake Visit Reasons: EP Cough, Headache, body ache weak (maksed) Intake Note: pt is here today forcough,headache and body pain. started 2 days ago Patient Tobacco Use Status: Never used Tobacco Allergies Sulfa (Sulfonamide Antibiotics) Allergy (Severe, Verified 01/20/23 12:28) Itching Sulf-10 Allergy (Intermediate, Uncoded 01/20/23 12:28) Itching, skin crawls latex Adverse Reaction (Unknown, Uncoded 01/20/23 12:28) Blister Medication List - Last Reconciled 01/20/23 by Demetrio Saul MD amlodipine 5 mg PO DAILY 90 days bisacodyl (Dulcolax (bisacodyl)) 20 mg (4 x 5 mg) PO ONCE 1 day cholecalciferol (vitamin D3) 50 mcg PO DAILY 90 days clotrimazole 1% 1 appl topical BID 2 weeks [id number] K 45 mg iron- 800 mcg-120 mcg (Bariatric Multivitamins) caps PO polyethylene glycol 3350 (Miralax) 238 grams PO ONCE thiamine HCl (vitamin B1) 100 mg PO DAILY Do you need a note to return to daycare/school/sports/work: Yes HPI EP Cough, Headache, body ache weak (maksed) HPI Details Patient presents for a sick visit. Reporting symptoms of sinus congestion, sore throat and difficulty swallowing. Low-grade fever. No family member is sick. No recent travel. Patient reports symptoms of malaise and fatigue. [facility] Medical History PCOS (polycystic ovarian syndrome) Diabetes Liver fibrosis Steatosis, liver GERD (gastroesophageal reflux disease) Arthritis Back pain HTN (hypertension) DONAVAN on CPAP Family planning Pre-op evaluation Anemia Vitamin D deficiency Surgical History Hx of cholecystectomy History of sleeve gastrectomy History of laparoscopy Morbid obesity History of left oophorectomy Umbilical hernia Family History Father Renal failure Mother Diabetes Hypothyroid Brother No problems noted. Sister No problems noted. Sister No problems noted. Maternal Grandmother Breast cancer Social History Household Members Other:: 2 Foster children Are you a primary cardiac care unit nurse to a significant other at home: Yes (2 foster children will be cared for by others for 1 week after surgery) Do you presently have visiting nurse or other home services: No Alcohol intake: current Alcohol intake frequency: holidays/special occasions only Patient Tobacco Use Status: Never used Tobacco e-Cigarette/Vaping Use: Never Used Second Hand Smoke Exposure: No service: No Current occupational status: employed Current occupational exposures/hazards: No Cognitive needs: No Hearing needs: No Vision needs: No Physical Exam Vital Signs: Last Vital Signs Temp 98.2 F 01/20/23 12:01 Pulse 97 01/20/23 12:01 BP 120/78 01/20/23 12:01 Pulse Ox 97 01/20/23 12:01 Oxygen Delivery Method Room Air 01/20/23 12:01 BMI result Body Mass Index 41.4 Const General: cooperative and healthy appearing Nutritional Appearance: well nourished Orientation/consciousness: patient oriented x3 Limitations: no limitations HEENT Head: Yes normal to inspection Eyes General: appearance normal, both eyes and all related structures Neck Neck: Yes normal visual inspection Chest Chest palpation & inspection: normal palpation of entire chest wall Resp Effort & Inspection: normal respiratory effort Neuro General: patient oriented x3 Assessment & Plan Assessment & Plan (1) Upper respiratory tract infection: Code(s): J06.9 - Acute upper respiratory infection, unspecified Plan: Antibiotics ordered. Increase fluid intake. Tylenol for aches and pains. If symptoms worsen, follow-up here for a recheck. Coding Level of Care Code Est Pt Level 3 (26593) Diagnoses Upper respiratory tract infection J06.9
== END 2023-01-20 12:47 | disposition home or self-care (01) ==
PROVIDERS: PCP Family Medicine; Visit Provider Internal Medicine
DX: J06.9 Acute upper respiratory infection, unspecified (principal)
CPT/HCPCS: 99213

== ENCOUNTER 2023-01-20 13:48 | Outpatient (REF) | payer BC, SELFPAY ==
[2023-01-20 14:31] LABS: Influenza A PCR NEGATIVE (Negative); Influenza B PCR NEGATIVE (Negative); Resp Syncy Virus RNA Qual PCR POSITIVE (Negative); SARS COV2 PCR INHOUSE NEGATIVE (Negative)
== END 2023-01-20 13:49 | disposition home or self-care (01) ==
LOC: HO.LNP 13:48
PROVIDERS: Visit Provider Internal Medicine
DX: Z11.52 Encounter for screening for COVID-19 (principal); Z20.822 Contact with and (suspected) exposure to COVID-19; R43.9 Unspecified disturbances of smell and taste
CPT/HCPCS: 0241U

== ENCOUNTER 2023-05-11 15:03 | Outpatient (REF) | payer BC, SELFPAY ==
[2023-05-11 15:18] LABS: MANUAL DIFF FLAG NO
[2023-05-11 15:28] LABS: Basophils Absolute Auto 0.1 X10*3/uL (0.0-0.2); Basophils Percent Auto 0.6 % (0-2); Eosinophils Absolute Auto 0.2 X10*3/uL (0.0-0.4); Eosinophils Percent Auto 1.9 % (0-4); Hematocrit 35.5 % (37.0-47.0); Hemoglobin 11.7 g/dl (12.0-16.0); Imm Gran Abs Auto 0.03 X10*3/uL (0.00-0.03); Imm Gran Pct Auto 0.4 % (0.0-0.4); Lymphocytes Absolute Auto 2.8 X10*3/uL (1.2-4.9); Lymphocytes Percent Auto 33.5 % (20-40); Mean Corpuscular Hemoglobin 28.5 pg (27.0-33.0); Mean Corpuscular Volume 86.6 fL (80.0-98.0); Mean Platelet Volume 8.9 fL (9.4-12.3); Monocytes Absolute Auto 0.5 X10*3/uL (0.1-1.2); Monocytes Percent Auto 5.3 % (2-11); Neutrophils Absolute Auto 4.9 x10*3/uL (2.0-8.3); Neutrophils Percent Auto 58.3 % (45-73); Platelet Count 327 X10*3/uL (160-400); Red Cell Distribution Width 12.6 % (11.0-16.0); White Blood Count 8.4 X10*3/uL (4.8-10.8)
[2023-05-11 15:58] LABS: Anion Gap 12 (12-20); Blood Urea Nitrogen 11 mg/dL (9-16); Calcium 8.8 mg/dL (8.4-10.2); Carbon Dioxide 24 mmol/L (22-29); Chloride 108 mmol/L (96-108); Estimated Glomerular Filt Rate > 60; Glucose Random 76 mg/dL (60-115); Potassium 3.4 mmol/L (3.3-5.1); Sodium 141 mmol/L (135-145)
== END 2023-05-11 15:04 | disposition home or self-care (01) ==
LOC: HO.LAB 15:03
PROVIDERS: PCP Family Medicine; Visit Provider Family Medicine
DX: Z00.00 Encounter for general adult medical examination without abnormal findings (principal)
CPT/HCPCS: 36415; 80048; 85025

== ENCOUNTER 2023-10-19 07:33 | Day surgery (SDC) | payer BC, SELFPAY ==
[2023-10-19 07:40] VITALS: BMI 42.5
--- NOTE | 2023-10-19 07:42 | MHC.SHP ---
Pre-Procedural Eval Section A - 24 Hr Update-Section A only Date of Service: 10/19/23 The patient is an INPATIENT: No The patient has been examined within 24 hours of the surgical procedure. The History & Physical has been completed within 30 days and I have reviewed it.: No Section B - Complete if H&P > 30 days Chief Complaint: Colon cancer screening Relevant Family History (Specify if Yes): No Relevant Social History: None Present Medications: see Short Stay Collaborative assessment Medical History: Significant History (PCOS (polycystic ovarian syndrome) Diabetes Liver fibrosis Steatosis, liver GERD (gastroesophageal reflux disease) Arthritis Back pain HTN (hypertension) DONAVAN on CPAP) History of Previous Operations: Relevant previous surgery/procedure and date(s) (Hx of cholecystectomy History of sleeve gastrectomy History of laparoscopy Morbid obesity History of left oophorectomy Umbilical hernia) Allergies: Allergies Allergy/AdvReac Type Severity Reaction Status Date / Time Sulfa (Sulfonamide Allergy Severe Itching Verified 01/20/23 12:28 Antibiotics) Sulf-10 Allergy Intermediate Itching, Uncoded 01/20/23 12:28 skin crawls latex AdvReac Unknown Blister Uncoded 01/20/23 12:28 Review of Systems Sugical H&P ROS: Negative: Constitution, Cardiovascular, Respiratory and Gastrointestinal Exam Surgical H&P Exam: Normal: Heart, Normal: Lungs, Normal: Extremities and Normal: Abdomen Plan Diagnosis/Plan: Unchanged I have reviewed the history and physical and performed a pertinent physical examination on my patient. No changes have occurred unless specified. Time Spent With Patient Time: Total time managing care of this patient today ____ minutes.
[2023-10-19 07:53] VITALS: BP 128/86; PULSE 90; RESP 18; TEMP 36.3; O2SAT 96
[2023-10-19] MEDS: Lactated Ringers 1,000 ML 50 ML IVCONT (08:00)
--- NOTE | 2023-10-19 08:36 | P.CONAN_ITS ---
[facility] Active Problems Active Problems: All Active Problems Elevated parathyroid hormone (Acute) Mild anemia (Acute) Rash (Acute) Needlestick injury accident with exposure to body fluid (Acute) Screening for colon cancer (Acute) Breast cancer screening by mammogram (Acute) Screening for cervical cancer (Acute) Adult general medical exam (Acute) Right flank pain (Acute) Obesity (BMI 30-39.9) (Acute) Bilateral knee pain (Acute) Essential hypertension (Acute) Congenital intra-abdominal adhesions (Acute) Intra-abdominal adhesions (Acute) Hepatomegaly (Acute) S/P laparoscopic sleeve gastrectomy (Acute) Status post repair of paraesophageal diaphragmatic hernia (Acute) Diaphragmatic hernia (Acute) PCOS (polycystic ovarian syndrome) (Acute) Diabetes (Acute) Liver fibrosis (Acute) Steatosis, liver (Acute) Arthritis (Acute) Back pain (Acute) GERD (gastroesophageal reflux disease) (Acute) DONAVAN on CPAP (Acute) Morbid obesity (Acute) Past Medical History Medical History PCOS (polycystic ovarian syndrome) Diabetes Liver fibrosis Steatosis, liver GERD (gastroesophageal reflux disease) Arthritis Back pain HTN (hypertension) DONAVAN on CPAP Family planning Pre-op evaluation Anemia Vitamin D deficiency Family History Family History Father Renal failure Mother Diabetes Hypothyroid Brother No problems noted. Sister No problems noted. Sister No problems noted. Maternal Grandmother Breast cancer Family history of problems with anesthesia: No Surgical History Surgical History Hx of cholecystectomy History of sleeve gastrectomy History of laparoscopy Morbid obesity History of left oophorectomy Umbilical hernia History of Problems with Anesthesia: No Social History Social History Household Members Other:: 2 Foster children Are you a primary child daycare worker to a significant other at home: Yes (2 foster children will be cared for by others for 1 week after surgery) Do you presently have visiting nurse or other home services: No Alcohol intake: current Alcohol intake frequency: does not drink Patient Tobacco Use Status: Never used Tobacco e-Cigarette/Vaping Use: Never Used Second Hand Smoke Exposure: No Advance Directives: No Advance Directives Information Provided: Yes Nutrition Risks: No Nutritional Risk service: No Current occupational status: employed Current occupational exposures/hazards: No Cognitive needs: No Hearing needs: No Vision needs: No Meds Allergies Allergy/AdvReac Type Severity Reaction Status Date / Time Sulfa (Sulfonamide Allergy Severe Itching Verified 01/20/23 12:28 Antibiotics) Sulf-10 Allergy Intermediate Itching, Uncoded 01/20/23 12:28 skin crawls latex AdvReac Unknown Blister Uncoded 01/20/23 12:28 Active Medications: Current Medications Lactated Ringer's (Lr) 1,000 mls @ 50 mls/hr IVCONT .Q20H HERB Last Admin: 10/19/23 08:00 Dose: 50 mls/hr Home Medications ?Medication ?Instructions ?Recorded ?Confirmed ?Last Taken ?Type multivitamin 10/19/23 10/19/23 Unknown History Exam Height,Weight and Vital Signs: Height 5 ft 3 in Weight 108.947 kg Last Vital Signs Temp 97.4 F 10/19/23 07:53 Pulse 90 10/19/23 07:53 Resp 18 10/19/23 07:53 BP 128/86 10/19/23 07:53 Pulse Ox 96 10/19/23 07:53 O2 Del Method Room Air 10/19/23 07:53 Airway Mallampati Class: II TM Dist: >3cm Neck ROM: Full Heart: rrr Lungs: cta Assessment and Plan Assessment Anesthesia Assessment: Anesthesia Plan Discussed and Chart Reviewed Final Anesthetic Review Family History of Problems with Anesthesia: No History of Problems with Anesthesia: No NPO: Yes ASA Class: II Final Preanesthetic Review: No Changes in Pt Med Stat, Meds/Allgs Chart Reviewed and Consent Obtained/Reviewed Patient Risk: Low Procedure Risk: Low Anesthetic Plan Anesthetic Plan: MAC: Disposition: Standard PACU
[2023-10-19 09:10] VITALS: BP 139/101; PULSE 88; RESP 16; TEMP 36.2; O2SAT 99
--- NOTE | 2023-10-19 09:10 | P.OPN-COLO_ITS ---
Colonoscopy Operative Note Operative Note Date of Service: 10/19/23 Narrative: COLONOSCOPY TILL CECUM WITH BIOPSIES Pre-op diagnosis: Colon cancer screening (First colon). Post-op diagnosis:? Diverticulosis, hemorrhoids Endoscopist:? Rishi Bustos MD Anesthesia:?MAC Consent: Indications for the procedure and potential complications of bleeding, perforation, reaction to medications and missed diagnosis were discussed with the patient and informed consent was obtained. Instrument: Olympus PCF H 190 L variable stiffness pediatric colonoscope Monitoring: Vital signs and clinical assessment, intermittent blood pressure monitoring, continuous EKG monitoring, Pulse oximetry and Carbon Dioxide monitoring were done throughout the procedure. Please see anesthesia flowsheet. Colon withdrawl time was 19 minutes. Procedure: The patient was placed in the left lateral decubitis position and pre-procedure medications were administered. After a digital rectal examination of the ano-rectum, the video colonoscope was inserted into the rectum and advanced through the colon to the cecum. The colonoscope was slowly withdrawn in a retrograde panoramic fashion and the colon mucosa was carefully examined including a retroflexed view of the rectum. Findings and interventions are described below. Procedure Difficulty: without difficulty Findings: Terminal Ileum: Not evaluated Cecum: Normal Ascending Colon: Normal Transverse Colon: Normal Descending Colon: Moderate diverticulosis Sigmoid Colon: Moderate diverticulosis Rectum: Normal Ano-rectum: Small internal hemorrhoids Colon preparation: Excellent, after some irrigation. [place] Bowel Preparation Scale Right colon; 3 Transverse colon: 3 Left colon; 3 (0 = Unprepared colon segment with mucosa not seen due to solid stool that cannot be cleared. 1 = Portion of mucosa of the colon segment seen, but other areas of the colon segment not well seen due to staining, residual stool and/or opaque liquid. 2 = Minor amount of residual staining, small fragments of stool and/or opaque liquid, but mucosa of colon segment seen well. 3 = Entire mucosa of colon segment seen well with no residual staining, small fragments of stool or opaque liquid) Impression and Post Procedure Diagnosis: Colonoscopy Findings: No polyps were detected Random biopsies were obtained from right and left colon to check for microscopic colitis Moderate diverticulosis seen in the left colon Small hemorrhoids on retroflexed exam. Plan: Pt has a FU appointment on 11/02/23 with Madelyn Singh NP Repeat Colonoscopy in 10 year if biopsies are normal. Above findings were reviewed with the patient and relevant handouts were given and the discharge area.
[2023-10-19 09:25] VITALS: BP 142/98; PULSE 74; RESP 18; TEMP 36.7; O2SAT 99
== END 2023-10-19 09:52 | disposition home or self-care (01) ==
PROVIDERS: PCP Family Medicine; Visit Provider Internal Medicine Gastroenterology
PROC: 0DJD8ZZ Inspection of Lower Intestinal Tract, Via Natural or Artificial Opening Endoscopic (ICD-10-PCS; CPT 45378; principal; 2023-10-19 08:30)
DX: Z12.11 Encounter for screening for malignant neoplasm of colon (principal); K57.30 Diverticulosis of large intestine without perforation or abscess without bleeding; K64.8 Other hemorrhoids; K21.9 Gastro-esophageal reflux disease without esophagitis; I10 Essential (primary) hypertension; E11.9 Type 2 diabetes mellitus without complications; K74.00 Hepatic fibrosis, unspecified; K76.0 Fatty (change of) liver, not elsewhere classified; G47.33 Obstructive sleep apnea (adult) (pediatric); Z99.89 Dependence on other enabling machines and devices; Z91.040 Latex allergy status; Z88.2 Allergy status to sulfonamides; Z98.890 Other specified postprocedural states
CPT/HCPCS: 45380; 88305; J2704

== ENCOUNTER → 2023-10-19 07:33 | Outpatient (BNV) | payer BC, SELFPAY | PROVIDERS: PCP Family Medicine; Visit Provider Internal Medicine Gastroenterology | DX: Z12.11 Encounter for screening for malignant neoplasm of colon (principal); K57.90 Diverticulosis of intestine, part unspecified, without perforation or abscess without bleeding; K64.8 Other hemorrhoids | CPT/HCPCS: 45380 ==

== ENCOUNTER 2023-10-21 12:20 | Outpatient (AMB) | payer BC, SELFPAY ==
--- NOTE | 2023-10-21 12:25 | A.OFFVIS_ITS ---
VS Expanded 10/21/23 12:36 BP 187/93 H Blood Pressure Location Rt brachial Blood Pressure Position Sitting Pulse 85 Pulse Source Pulse Oximeter Temp 97.9 F Temperature Source Temporal Artery Scan Pulse Oximetry 99 Oxygen Delivery Method Room Air Height 5 ft 3 in Weight 238 lb BMI 42.2 Body Fat % 45.9 Body Fat Mass 109.2 Fat Free Mass 128.8 Visceral Fat Rating 14.0 Body Water % 38.6 Body Water Mass 91.8 Muscle Mass/Score 122.4 Basal Metabolic Rate/Score 1,811 Intake Visit Reasons: (OV) PO LSG 09/04/21 Allergies Sulfa (Sulfonamide Antibiotics) Allergy (Severe, Verified 01/20/23 12:28) Itching Sulf-10 Allergy (Intermediate, Uncoded 01/20/23 12:28) Itching, skin crawls latex Adverse Reaction (Unknown, Uncoded 01/20/23 12:28) Blister Medication List - Last Reconciled 10/21/23 by CHANTELL Leung amlodipine 5 mg PO DAILY 90 days [multivitamin ] HPI Comments Details: This?is a?48 yo female who is s/p LSG 09/04/2021. Presents for 2 year post op visit. Weight at last visit on 05/15/2022 was 219.4 pounds with a BMI of 38.8, weight today is 238 pounds, representing a 18.6 pound weight gain with a BMI today of 38.8.? No complaints of nausea, emesis, abdominal pain or reflux, or constipation. On amlodipine for BP, takes regularly. Reports she fell off . Not following meal plan. Eating bread and rice. Asking about GLP1 meds. Frustrated by weight gain. BP recheck at end of visit 144/84. Present meal plan includes: goal 90g/day protein: breakfast- 2 eggs with veg or GY/CC with fruit or protein bar lunch- 4oz protein, 4oz veg dinner- 4oz protein, 4oz veg or 1-2oz carb in place of 1-2oz veg snack- GY/CC or bar or low fat cheese 1-2oz with fruit Exercise routine includes: [facility] Medical History PCOS (polycystic ovarian syndrome) Diabetes Liver fibrosis Steatosis, liver GERD (gastroesophageal reflux disease) Arthritis Back pain HTN (hypertension) DONAVAN on CPAP Family planning Pre-op evaluation Anemia Vitamin D deficiency Surgical History Hx of cholecystectomy History of sleeve gastrectomy History of laparoscopy Morbid obesity History of left oophorectomy Umbilical hernia Family History Father Renal failure Mother Diabetes Hypothyroid Brother No problems noted. Sister No problems noted. Sister No problems noted. Maternal Grandmother Breast cancer Social History (Updated 10/21/23 @ 12:34 by Vangie Salas CMA) Household Members Other:: 2 Foster children Are you a primary neonatal critical care nurse to a significant other at home: Yes (2 foster children will be cared for by others for 1 week after surgery) Do you presently have visiting nurse or other home services: No Alcohol intake: current Alcohol intake frequency: does not drink Patient Tobacco Use Status: Never used Tobacco e-Cigarette/Vaping Use: Never Used Second Hand Smoke Exposure: No service: No Current occupational status: employed Current occupational exposures/hazards: No Cognitive needs: No Hearing needs: No Vision needs: No Physical Exam Vital Signs: Last Vital Signs Temp 97.9 F 10/21/23 12:36 Pulse 85 10/21/23 12:36 BP 187/93 H 10/21/23 12:36 Pulse Ox 99 10/21/23 12:36 Oxygen Delivery Method Room Air 10/21/23 12:36 BMI result Body Mass Index 42.2 Assessment & Plan Assessment & Plan (1) S/P laparoscopic sleeve gastrectomy: Code(s): Z98.84 - Bariatric surgery status Category: Surgical (2) Morbid obesity: Code(s): E66.01 - Morbid (severe) obesity due to excess calories Category: Surgical Plan Had a long discussion about challenges of weight loss and the importance of adhering closely to a high protein meal plan. Pt agreeable to trying a new plan: 7-9am 20g protein bar 11am-1pm Corepower shake 3-5pm 20g bar 6:30pm 6f/6f 8:30pm cottage cheese cup Labs ordered. RTC 6 weeks, plan also texted to pt and I encouraged her to stick to this plan consistently for the next 2 weeks, monitor how she feels, hunger levels, and let me know in 2 weeks via text how she is doing. I spent a total of 30 minutes reviewing/updating records, examining the patient and counseling the patient on weight management as detailed above. Orders: Orders Insulin Today Z98.84 - Bariatric surgery status Hemoglobin A1c Today Z98.84 - Bariatric surgery status IRON PROFILE Today Z98.84 - Bariatric surgery status Vitamin B12 and Folate Today Z98.84 - Bariatric surgery status Zinc Today Z98.84 - Bariatric surgery status Vitamin B1 Today Z98.84 - Bariatric surgery status TSH reflex Free T4 Today Z98.84 - Bariatric surgery status Complete Blood Count Auto Diff Today Z98.84 - Bariatric surgery status Lipid Panel Today Z98.84 - Bariatric surgery status Comprehensive Met. Panel Today Z98.84 - Bariatric surgery status C Reactive Protein Today Z98.84 - Bariatric surgery status Vitamin A Today Z98.84 - Bariatric surgery status Ferritin Today Z98.84 - Bariatric surgery status Vitamin D 25-OH Total Today Z98.84 - Bariatric surgery status
[2023-10-21 12:36] VITALS: BP 187/93; PULSE 85; TEMP 36.6; O2SAT 99; BMI 42.2
== END 2023-10-21 13:15 | disposition home or self-care (01) ==
PROVIDERS: PCP Family Medicine; Visit Provider Physician Assistant Surgical
DX: E66.01 Morbid (severe) obesity due to excess calories (principal); Z68.41 Body mass index [BMI] 40.0-44.9, adult; Z90.3 Acquired absence of stomach [part of]; Z98.84 Bariatric surgery status
CPT/HCPCS: 99214

== ENCOUNTER → 2023-10-21 12:20 | Outpatient (BNVA) | payer BC, SELFPAY | PROVIDERS: PCP Family Medicine; Visit Provider Physician Assistant Surgical ==

== ENCOUNTER 2023-11-02 13:00 | Outpatient (AMB) | payer BC, SELFPAY ==
--- NOTE | 2023-11-02 13:16 | A.OFFWM_ITS ---
Intake Intake Visit Reasons: VIDEO PO LSG 09/04/21 Allergies Sulfa (Sulfonamide Antibiotics) Allergy (Severe, Verified 01/20/23 12:28) Itching Sulf-10 Allergy (Intermediate, Uncoded 01/20/23 12:28) Itching, skin crawls latex Adverse Reaction (Unknown, Uncoded 01/20/23 12:28) Blister PFSH Medical History PCOS (polycystic ovarian syndrome) Diabetes Liver fibrosis Steatosis, liver GERD (gastroesophageal reflux disease) Arthritis Back pain HTN (hypertension) DONAVAN on CPAP Family planning Pre-op evaluation Anemia Vitamin D deficiency Surgical History Hx of cholecystectomy History of sleeve gastrectomy History of laparoscopy Morbid obesity History of left oophorectomy Umbilical hernia Family History Father Renal failure Mother Diabetes Hypothyroid Brother No problems noted. Sister No problems noted. Sister No problems noted. Maternal Grandmother Breast cancer Social History (Updated 10/21/23 @ 12:34 by Vangie Salas CMA) Household Members Other:: 2 Foster children Are you a primary sub acute care nurse to a significant other at home: Yes (2 foster children will be cared for by others for 1 week after surgery) Do you presently have visiting nurse or other home services: No Alcohol intake: current Alcohol intake frequency: does not drink Patient Tobacco Use Status: Never used Tobacco e-Cigarette/Vaping Use: Never Used Second Hand Smoke Exposure: No service: No Current occupational status: employed Current occupational exposures/hazards: No Cognitive needs: No Hearing needs: No Vision needs: No Behavioral Health Assessment Weight Management Therapy Therapy Notes Details Pt is a 48 y/o Female who presents for consult per WMP-provider referral due to weight gain post-op and ongoing life stressors impacting her. PT reports that back in after a failed adoption process she started dealing with mood related issues and feelings she is having a hard time coping, she has also been fall off healthy life style track after the event. The attending provider, Luz Maria Peña, recommended her to consult with me for support coping with stress events and with weight loss journey. Today we did part of the comp. assessment and we will meet again next week to continue identifying ongoing factors affecting her as well of needs to provide support. Presenting Concerns Referral Source [facility] Provider, Roman Romero Reason for referral BH support as due to challenges with post-op weight loss. Precipitating Event Weight gain after bariatric surgery. Living Situation Current Living Situation Own At risk of losing current housing? No Satisfied with current living situation? Yes Comments PT lives alone on a 2 family home she owns and she rents the other apartment. Social History Family history and relationship PT is , has been 2 times. She doesn't have children of her own PT has 2 sisters and 1 brother. Mother lives in [place]. Father . Parental/Familial aqua ammonia operator obligations None. was a foster mother up until Developmental history and status None. Social support Some friends. Community support None reported. Caodaism/Spirituality Seventh holiness. Not consistent with buddhist. Cultural/Ethnic information PT is from [place]. Came to the when she was 12 y/o. Education Currently enrolled in educational program? No Interested in further educational program? 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 No Meaningful activities Read, hiking, being outside. Financial Situation Describe current financial situation Comfortable Financial assistance? None Service Service? No Pain Screening Current pain? No Pain in the last few months? No Medications Is the patient compliant with medications? Yes Does the patient have Chopra Guardian in place? Not applicable Does the patient use complimentary health approaches? No Trauma/Abuse History History of trauma? No Assessment & Plan Assessment & Plan (1) Adjustment disorder: Code(s): F43.20 - Adjustment disorder, unspecified Qualifiers: Adjustment disorder type: unspecified type Qualified Code(s): F43.20 - Adjustment disorder, unspecified Plan Follow up in 1 week. PT will continue receiving support as part of WMP services. Next visit we will identify some triggers, psychoeducation and tecniques will be provided. Next pau: 11/10/23 at 1pm, telehealth. Telehealth Telehealth Telehealth Platform: [facility] Location of provider rendering services: other Location of patient: address on file Patient Identification confirmed using: Name, : Yes Telehealth method: video Patient verbally consented to treatment: Yes Patient verbally consented to billing insurance company: Yes Patient informed of any privacy concerns related to visit: No Minutes spent on Phone/Video with Pt.: 60 Coding Level of Care Code Tele Psy Diag Eval (73853) Diagnoses Adjustment disorder, unspecified type F43.20 Adjustment disorder type: unspecified type
== END 2023-11-02 14:00 | disposition home or self-care (01) ==
LOC: HO.HBST 13:47
PROVIDERS: PCP Family Medicine; Visit Provider Counselor Mental Health
DX: F43.20 Adjustment disorder, unspecified (principal)
CPT/HCPCS: 90791

== ENCOUNTER → 2023-11-02 13:00 | Outpatient (BNVA) | payer BC, SELFPAY | PROVIDERS: PCP Family Medicine; Visit Provider Counselor Mental Health ==

== ENCOUNTER → 2023-11-10 13:21 | Outpatient (AMB) | payer BC, SELFPAY ==
--- NOTE | 2023-11-10 13:25 | MHC.WMTHER ---
Intake Intake Visit Reasons: VIDEO PO LSG 09/04/21 Allergies Sulfa (Sulfonamide Antibiotics) Allergy (Severe, Verified 12/08/23 12:36) Itching Sulf-10 Allergy (Intermediate, Uncoded 01/20/23 12:28) Itching, skin crawls latex Adverse Reaction (Unknown, Uncoded 01/20/23 12:28) Blister PFSH Medical History PCOS (polycystic ovarian syndrome) Diabetes Liver fibrosis Steatosis, liver GERD (gastroesophageal reflux disease) Arthritis Back pain HTN (hypertension) DONAVAN on CPAP Family planning Pre-op evaluation Anemia Vitamin D deficiency Surgical History Hx of cholecystectomy History of sleeve gastrectomy History of laparoscopy Morbid obesity History of left oophorectomy Umbilical hernia Family History Father Renal failure Mother Diabetes Hypothyroid Brother No problems noted. Sister No problems noted. Sister No problems noted. Maternal Grandmother Breast cancer Social History (Updated 12/08/23 @ 12:37 by Vangie Salas CMA) Household Members Other:: 2 Foster children Are you a primary career technical education teacher to a significant other at home: Yes (2 foster children will be cared for by others for 1 week after surgery) Do you presently have visiting nurse or other home services: No Alcohol intake: current Alcohol intake frequency: holidays/special occasions only Patient Tobacco Use Status: Never used Tobacco e-Cigarette/Vaping Use: Never Used Second Hand Smoke Exposure: No service: No Current occupational status: employed Current occupational exposures/hazards: No Cognitive needs: No Hearing needs: No Vision needs: No Behavioral Health Assessment Weight Management Therapy Therapy Notes Details PT presents for a follow up visit via Telehealth. PT reports she has been upset about a recent event and agreed to process that while continue assessment. Objective: Today we continue assessment while learning about triggers and responses. Psychoeducation provided around Triggers, responses, consequences, cycle of responses and behavioral patters. We processed most recent trigger (yesterday) and completed the ABC analysis, we focused on responses and ways to start modifying behavior to desired responses (constructive responses). Assessment/Response: Mental status Exam: disappointment, frustrations. Alert, oriented, attentive, cooperative and engaged. Risk Factors: None reported/identified PT responded well to modality, the exercise was helpful for her to start understanding behavioral patterns that lead to unwanted behaviors and/or results. Plan: we will continue meeting for support as post-op client. Next pau in 2 weeks. Presenting Concerns Referral Source [facility] Provider, Roman Romero Reason for referral support as due to challenges with post-op weight loss. Precipitating Event Weight gain after bariatric surgery. Living Situation Current Living Situation Own At risk of losing current housing? No Satisfied with current living situation? Yes Comments PT lives alone on a 2 family home she owns and she rents the other apartment. Social History Family history and relationship PT is , has been 2 times. She doesn't have children of her own PT has 2 sisters and 1 brother. Mother lives in [place]. Father . Parental/Familial painter structural steel obligations None. was a foster mother up until Developmental history and status None. Social support Some friends. Community support None reported. Roman Catholic/Spirituality Seventh scientology. Not consistent with baptist. Cultural/Ethnic information PT is from [place]. [place]ame to the [place] when she was 12 y/o. Legal Involvement and History Current or historical involvement with the legal system? None Education Currently enrolled in educational program? No Interested in further educational program? 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 No Meaningful activities Read, hiking, being outside. Financial Situation Describe current financial situation Comfortable Financial assistance? None Service Service? No Mental Health and Addiction Treatment Current/Past substance abuse? No Current/Past addictive behavior concerns? No Psychiatric history Denies been in counseling before. PT denies ever been in crisis or inpatient for mental health. There is no history and/or current concern about SI/Sa and self-harm or other harm. Medical and Physical Health Summary Additional Medical History not covered in history None Sexual History concerns None reported Physical exam in the last year? Yes Pain Screening Current pain? No Pain in the last few months? No Medications Is the patient compliant with medications? Yes Does the patient have Chopra Guardian in place? Not applicable Does the patient use complimentary health approaches? No Trauma/Abuse History History of trauma? No Assessment & Plan Assessment & Plan (1) Adjustment disorder: Code(s): F43.20 - Adjustment disorder, unspecified Qualifiers: Adjustment disorder type: unspecified type Qualified Code(s): F43.20 - Adjustment disorder, unspecified Plan Follow up in 2 weeks. Next pau: 11/24/2023 at 1 pm, via Telehealth. Telehealth Telehealth Telehealth Platform: [facility] Location of provider rendering services: other Location of patient: other (Work) Patient Identification confirmed using: Name, : Yes Telehealth method: video Patient verbally consented to treatment: Yes Patient verbally consented to billing insurance company: Yes Patient informed of any privacy concerns related to visit: Yes Minutes spent on Phone/Video with Pt.: 60 Coding Level of Care Code Established Pt Tele Psytx >53 mins ([id number]) Patient Type Established Diagnoses Adjustment disorder, unspecified type F43.20 Adjustment disorder type: unspecified type Time Spent (min) 60 Comment Start time: 1:15pm, End time:2:15pm
== END ==
LOC: HO.HBST 13:21
PROVIDERS: PCP Family Medicine; Visit Provider Counselor Mental Health
DX: F43.20 Adjustment disorder, unspecified (principal)
CPT/HCPCS: 90837

== ENCOUNTER → 2023-11-10 13:21 | Outpatient (BNVA) | payer BC, SELFPAY | PROVIDERS: PCP Family Medicine; Visit Provider Counselor Mental Health ==

== ENCOUNTER 2023-11-24 13:12 | Outpatient (AMB) | payer BC, SELFPAY ==
--- NOTE | 2023-11-24 13:05 | MHC.WMTHER ---
Intake Intake Visit Reasons: VIDEO PO LSG 09/04/21 Allergies Sulfa (Sulfonamide Antibiotics) Allergy (Severe, Verified 12/08/23 12:36) Itching Sulf-10 Allergy (Intermediate, Uncoded 01/20/23 12:28) Itching, skin crawls latex Adverse Reaction (Unknown, Uncoded 01/20/23 12:28) Blister PFSH Medical History PCOS (polycystic ovarian syndrome) Diabetes Liver fibrosis Steatosis, liver GERD (gastroesophageal reflux disease) Arthritis Back pain HTN (hypertension) DONAVAN on CPAP Family planning Pre-op evaluation Anemia Vitamin D deficiency Surgical History Hx of cholecystectomy History of sleeve gastrectomy History of laparoscopy Morbid obesity History of left oophorectomy Umbilical hernia Family History Father Renal failure Mother Diabetes Hypothyroid Brother No problems noted. Sister No problems noted. Sister No problems noted. Maternal Grandmother Breast cancer Social History (Updated 12/08/23 @ 12:37 by Vangie Salas CMA) Household Members Other:: 2 Foster children Are you a primary rn primary care to a significant other at home: Yes (2 foster children will be cared for by others for 1 week after surgery) Do you presently have visiting nurse or other home services: No Alcohol intake: current Alcohol intake frequency: holidays/special occasions only Patient Tobacco Use Status: Never used Tobacco e-Cigarette/Vaping Use: Never Used Second Hand Smoke Exposure: No service: No Current occupational status: employed Current occupational exposures/hazards: No Cognitive needs: No Hearing needs: No Vision needs: No Behavioral Health Assessment Weight Management Therapy Therapy Notes Details Subjective: PT reports she has been doing better but on the other hand had a difficult weekend that has lead to overthink about what she 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 Objective: PT presents for a follow up visit via Telehealth. Discussed functioning and events happened on the weekend. Used reflective listening and cognitive processing interventions. Reflected on meaning of events and responses to it. CBT based interventions for Sx management and implement healthier coping mechanisms to support her goals while processed current patters/responses. Assessment/Response: Mental status: Sensitive but not depressed. Alert, oriented X3, active, attentive and engaged. Risk reported/identified: None Plan: Assessment & Plan Assessment & Plan (1) Adjustment disorder: Code(s): F43.20 - Adjustment disorder, unspecified Qualifiers: Adjustment disorder type: unspecified type Qualified Code(s): F43.20 - Adjustment disorder, unspecified Plan Follow up in 3 weeks. Next pau: 12/15/2023 at 1 pm, via Telehealth. Telehealth Telehealth Telehealth Platform: [employer] Location of provider rendering services: other Location of patient: other Patient Identification confirmed using: Name, : Yes Telehealth method: video Patient verbally consented to treatment: Yes Patient verbally consented to billing insurance company: Yes Patient informed of any privacy concerns related to visit: Yes Minutes spent on Phone/Video with Pt.: 60 Coding Level of Care Code Established Pt Tele Psytx >53 mins (54173) Patient Type Established Diagnoses Adjustment disorder, unspecified type F43.20 Adjustment disorder type: unspecified type Time Spent (min) 60 Comment start time: 1:05pm, End time: 2:05pm
== END 2023-11-24 14:00 | disposition home or self-care (01) ==
LOC: HO.HBST 13:12
PROVIDERS: PCP Family Medicine; Visit Provider Counselor Mental Health
DX: F43.20 Adjustment disorder, unspecified (principal)
CPT/HCPCS: 90837

== ENCOUNTER → 2023-11-24 13:12 | Outpatient (BNVA) | payer BC, SELFPAY | PROVIDERS: PCP Family Medicine; Visit Provider Counselor Mental Health ==

== ENCOUNTER 2023-12-08 12:24 | Outpatient (AMB) | payer BC, SELFPAY ==
--- NOTE | 2023-12-08 12:32 | MHC.OFFVISWM ---
VS Expanded 12/08/23 12:38 BP 145/96 H Blood Pressure Location Rt brachial Blood Pressure Position Sitting Pulse 88 Pulse Source Pulse Oximeter Temp 98.8 F Temperature Source Temporal Artery Scan Pulse Oximetry 97 Oxygen Delivery Method Room Air Height 5 ft 3 in Weight 240 lb 9.6 oz BMI 42.6 Body Fat % 46.7 Body Fat Mass 12.4 Fat Free Mass 128.0 Visceral Fat Rating 15.0 Body Water % 37.9 Body Water Mass 91.2 Muscle Mass/Score 121.6 Basal Metabolic Rate/Score 1,808 Intake Visit Reasons: (OV) PO LSG 09/04/21 Allergies Sulfa (Sulfonamide Antibiotics) Allergy (Severe, Verified 12/08/23 12:36) Itching Sulf-10 Allergy (Intermediate, Uncoded 01/20/23 12:28) Itching, skin crawls latex Adverse Reaction (Unknown, Uncoded 01/20/23 12:28) Blister Medication List - Last Reconciled 12/08/23 by CHANTELL Leung amlodipine 5 mg PO DAILY 90 days [multivitamin ] HPI Comments Details: This?is a?48?yo female who is s/p LSG 09/04/2021. Presents for 2 year 3 month post op visit. Weight at last visit on 10/21/2023 was 238 pounds with a BMI of 42.2, weight today is 240.6 pounds, representing a 2.6 pound weight gain with a BMI today of 42.6.? No complaints of nausea, emesis, abdominal pain or reflux, or constipation. Present meal plan includes: 7-9am 20g protein bar 11am-1pm Corepower shake 3-5pm 20g bar 6:30pm 6f/6f 8:30pm cottage cheese cup pt reports she got really tired of the shakes after a while. Went back to previous eating habits. Feels that she was getting enough protein but was eating other off plan items. Exercise routine includes: hiking, walking; no more [employer] [facility] Medical History PCOS (polycystic ovarian syndrome) Diabetes Liver fibrosis Steatosis, liver GERD (gastroesophageal reflux disease) Arthritis Back pain HTN (hypertension) DONAVAN on CPAP Family planning Pre-op evaluation Anemia Vitamin D deficiency Surgical History Hx of cholecystectomy History of sleeve gastrectomy History of laparoscopy Morbid obesity History of left oophorectomy Umbilical hernia Family History (Reviewed 12/08/23 @ 12:37 by Vangie Salas [facility]) Father Renal failure Mother Diabetes Hypothyroid Brother No problems noted. Sister No problems noted. Sister No problems noted. Maternal Grandmother Breast cancer Social History (Updated 12/08/23 @ 12:37 by Vangie Salas [facility]) Household Members Other:: 2 Foster children Are you a primary career resource technician to a significant other at home: Yes (2 foster children will be cared for by others for 1 week after surgery) Do you presently have visiting nurse or other home services: No Alcohol intake: current Alcohol intake frequency: holidays/special occasions only Patient Tobacco Use Status: Never used Tobacco e-Cigarette/Vaping Use: Never Used Second Hand Smoke Exposure: No service: No Current occupational status: employed Current occupational exposures/hazards: No Cognitive needs: No Hearing needs: No Vision needs: No Assessment & Plan Assessment & Plan (1) S/P laparoscopic sleeve gastrectomy: Code(s): Z98.84 - Bariatric surgery status Category: Surgical (2) Morbid obesity: Code(s): E66.01 - Morbid (severe) obesity due to excess calories Category: Surgical Plan Pt unable to be consistent with shake based plan. Discussed that high protein supplement based plan was likely to result in best rate of weight loss. She would like to transition back to food based plan. breakfast- 2 eggs with veg or GY/CC with fruit or protein bar lunch- 4oz protein, 4oz veg dinner- 4oz protein, 4oz veg or 1-2oz carb in place of 1-2oz veg snack- GY/CC or bar or low fat cheese 1-2oz with fruit or pea crisps or ostrim sick Gave recipe book and healthy foods hand out. Encouraged pt to commit to exercise that she enjoys. Reminded to have labs done. RTC 2 months. I spent a total of 30 minutes reviewing/updating records, examining the patient and counseling the patient on weight management as detailed above.
[2023-12-08 12:38] VITALS: BP 145/96; PULSE 88; TEMP 37.1; O2SAT 97; BMI 42.6
== END 2023-12-08 13:14 | disposition home or self-care (01) ==
PROVIDERS: PCP Family Medicine; Visit Provider Physician Assistant Surgical
DX: E66.813 Obesity, class 3 (principal); Z68.41 Body mass index [BMI] 40.0-44.9, adult; Z90.3 Acquired absence of stomach [part of]; Z98.84 Bariatric surgery status
CPT/HCPCS: 99214

== ENCOUNTER → 2023-12-08 12:24 | Outpatient (BNVA) | payer BC, SELFPAY | PROVIDERS: PCP Family Medicine; Visit Provider Physician Assistant Surgical ==

== ENCOUNTER → 2023-12-15 13:00 | Outpatient (BNVA) | payer BC, SELFPAY | PROVIDERS: PCP Family Medicine; Visit Provider Counselor Mental Health ==

== ENCOUNTER → 2023-12-15 13:00 | Outpatient (AMB) | payer BC, SELFPAY ==
--- NOTE | 2023-12-15 13:00 | A.OFFWM_ITS ---
Intake Intake Visit Reasons: VIDEO PO LSG 09/04/21 Allergies Sulfa (Sulfonamide Antibiotics) Allergy (Severe, Verified 12/08/23 12:36) Itching Sulf-10 Allergy (Intermediate, Uncoded 01/20/23 12:28) Itching, skin crawls latex Adverse Reaction (Unknown, Uncoded 01/20/23 12:28) Blister PFSH Medical History PCOS (polycystic ovarian syndrome) Diabetes Liver fibrosis Steatosis, liver GERD (gastroesophageal reflux disease) Arthritis Back pain HTN (hypertension) DONAVAN on CPAP Family planning Pre-op evaluation Anemia Vitamin D deficiency Surgical History Hx of cholecystectomy History of sleeve gastrectomy History of laparoscopy Morbid obesity History of left oophorectomy Umbilical hernia Family History Father Renal failure Mother Diabetes Hypothyroid Brother No problems noted. Sister No problems noted. Sister No problems noted. Maternal Grandmother Breast cancer Social History (Updated 12/08/23 @ 12:37 by Vangie Salas CMA) Household Members Other:: 2 Foster children Are you a primary career center advisor to a significant other at home: Yes (2 foster children will be cared for by others for 1 week after surgery) Do you presently have visiting nurse or other home services: No Alcohol intake: current Alcohol intake frequency: holidays/special occasions only Patient Tobacco Use Status: Never used Tobacco e-Cigarette/Vaping Use: Never Used Second Hand Smoke Exposure: No service: No Current occupational status: employed Current occupational exposures/hazards: No Cognitive needs: No Hearing needs: No Vision needs: No Behavioral Health Assessment Weight Management Therapy Therapy Notes Details Subjective: Cristobal shared her current challenges, stating she has been skipping meals (either having breakfast or lunch) and not feeling that well in general. She expressed feelings of tiredness and experienced some low motivation at times. The Client elaborated on her struggles with maintaining a consistent routine, particularly around her eating habits and work schedule. She mentioned that these disruptions have made her feel less in control of her life, contributing to her low energy levels. The Client identified recent stressors with family and work as a significant contributing factor to her current situation. She expressed a desire to regain a sense of control and balance in her life. Objective: PT presents for a follow up visit via Telehealth. . Discussed functioning and routine. The Client engaged in the session assertively and demonstrated self-reflective behavior, particularly when discussing her routine and stressors. She actively participated in identifying coping strategies and appeared motivated to implement changes. Her insight into the impact of her eating habits on her overall well-being was clear, indicating a willingness to explore these issues further. The cycle of restriction and overeating was discussed, with the Client showing an understanding of how this pattern affects her energy levels and mood. Assessment/Response: * Mental status: WNL * Risk reported/identified: None The Client's engagement in the session reflects her readiness to address these issues through cognitive-behavioral strategies. Assessment & Plan Assessment & Plan (1) Adjustment disorder: Code(s): F43.20 - Adjustment disorder, unspecified Qualifiers: Adjustment disorder type: unspecified type Qualified Code(s): F43.20 - Adjustment disorder, unspecified Plan The Client will implement coping strategies discussed during the session, including assertiveness techniques, planning her work schedule, and setting aside time for balanced meals and after-work activities. Cognitive-behavioral therapy (CBT) techniques will be reinforced to help the Client feel more in control of her life and decisions. f/up in 3 weeks. Next pau: 01/05/2024 at 1pm. Telehealth Telehealth [facility]health [facility] Location of provider rendering services: other Location of patient: other Patient Identification confirmed using: Name, : Yes Telehealth method: video Patient verbally consented to treatment: Yes Patient verbally consented to billing insurance company: Yes Patient informed of any privacy concerns related to visit: Yes Minutes spent on Phone/Video with Pt.: 60 Coding Level of Care Code Established Pt Tele Psytx >53 mins ([id number]) Patient Type Established Diagnoses Adjustment disorder, unspecified type F43.20 Adjustment disorder type: unspecified type Time Spent (min) 60
== END ==
LOC: HO.HBST 13:18
PROVIDERS: PCP Family Medicine; Visit Provider Counselor Mental Health
DX: F43.20 Adjustment disorder, unspecified (principal)
CPT/HCPCS: 90837

== ENCOUNTER 2024-01-05 13:32 | Outpatient (AMB) | payer BC, SELFPAY ==
--- NOTE | 2024-01-05 13:15 | A.OFFWM_ITS ---
Intake Intake Visit Reasons: VIDEO PO LSG 09/04/21 Allergies Sulfa (Sulfonamide Antibiotics) Allergy (Severe, Verified 12/08/23 12:36) Itching Sulf-10 Allergy (Intermediate, Uncoded 01/20/23 12:28) Itching, skin crawls latex Adverse Reaction (Unknown, Uncoded 01/20/23 12:28) Blister PFSH Medical History PCOS (polycystic ovarian syndrome) Diabetes Liver fibrosis Steatosis, liver GERD (gastroesophageal reflux disease) Arthritis Back pain HTN (hypertension) DONAVAN on CPAP Family planning Pre-op evaluation Anemia Vitamin D deficiency Surgical History Hx of cholecystectomy History of sleeve gastrectomy History of laparoscopy Morbid obesity History of left oophorectomy Umbilical hernia Family History Father Renal failure Mother Diabetes Hypothyroid Brother No problems noted. Sister No problems noted. Sister No problems noted. Maternal Grandmother Breast cancer Social History (Updated 12/08/23 @ 12:37 by Vangie Salas CMA) Household Members Other:: 2 Foster children Are you a primary critical care transport nurse to a significant other at home: Yes (2 foster children will be cared for by others for 1 week after surgery) Do you presently have visiting nurse or other home services: No Alcohol intake: current Alcohol intake frequency: holidays/special occasions only Patient Tobacco Use Status: Never used Tobacco e-Cigarette/Vaping Use: Never Used Second Hand Smoke Exposure: No service: No Current occupational status: employed Current occupational exposures/hazards: No Cognitive needs: No Hearing needs: No Vision needs: No Behavioral Health Assessment Weight Management Therapy Therapy Notes Details Subjective: Patient reports experiencing increased stress recently. Noticed that when her sister is around, she tends to eat more, snack more, or generally experience an increase in appetite. The patient identifies this as a trigger for her eating habits and expresses concern about managing these responses. Objective: Patient presents for a follow-up visit via Telehealth. Reflective listening was used to help the patient process recent family-related triggers and emotional responses to her sister?s presence. Focused on building communication and assertiveness skills to help the patient navigate family dynamics more effectively. Encouraged exploration of healthy coping strategies to address emotional eating and manage stress related to family interactions. Assessment/Response: * Mental status: WNL * Risk reported/identified: None The patient appears aware of how certain family dynamics, particularly interactions with her sister, impact her eating behaviors. Some emotional distress is present, but the patient is engaged and working on self-awareness. The patient is showing a willingness to learn communication techniques to address triggers and improve her coping strategies Assessment & Plan Assessment & Plan (1) Adjustment disorder: Code(s): F43.20 - Adjustment disorder, unspecified Qualifiers: Adjustment disorder type: unspecified type Qualified Code(s): F43.20 - Adjustment disorder, unspecified Plan Continue to work on assertiveness and communication strategies to help the patient set boundaries and manage stress more effectively in family settings. Explore alternative coping mechanisms for emotional eating and increase the patient?s ability to manage triggers. Follow-up appointment scheduled to assess progress and provide continued support. Telehealth Telehealth Telehealth Platform: [facility] Location of provider rendering services: other Location of patient: other Patient Identification confirmed using: Name, : Yes Telehealth method: video Patient verbally consented to treatment: Yes Patient verbally consented to billing insurance company: Yes Patient informed of any privacy concerns related to visit: Yes Minutes spent on Phone/Video with Pt.: 60 Coding Level of Care Code Established Pt Tele Psytx >53 mins (04565) Patient Type Established Diagnoses Adjustment disorder, unspecified type F43.20 Adjustment disorder type: unspecified type Time Spent (min) 60
== END 2024-01-05 14:31 | disposition home or self-care (01) ==
LOC: HO.HBST 13:32
PROVIDERS: PCP Family Medicine; Visit Provider Counselor Mental Health
DX: F43.20 Adjustment disorder, unspecified (principal)
CPT/HCPCS: 90837

== ENCOUNTER 2024-01-26 13:19 | Outpatient (AMB) | payer BC, SELFPAY ==
--- NOTE | 2024-01-26 13:05 | A.OFFWM_ITS ---
Intake Intake Visit Reasons: VIDEO PO LSG 09/04/21 Allergies Sulfa (Sulfonamide Antibiotics) Allergy (Severe, Verified 12/08/23 12:36) Itching Sulf-10 Allergy (Intermediate, Uncoded 01/20/23 12:28) Itching, skin crawls latex Adverse Reaction (Unknown, Uncoded 01/20/23 12:28) Blister PFSH Medical History PCOS (polycystic ovarian syndrome) Diabetes Liver fibrosis Steatosis, liver GERD (gastroesophageal reflux disease) Arthritis Back pain HTN (hypertension) DONVAAN on CPAP Family planning Pre-op evaluation Anemia Vitamin D deficiency Surgical History Hx of cholecystectomy History of sleeve gastrectomy History of laparoscopy Morbid obesity History of left oophorectomy Umbilical hernia Family History Father Renal failure Mother Diabetes Hypothyroid Brother No problems noted. Sister No problems noted. Sister No problems noted. Maternal Grandmother Breast cancer Social History (Updated 12/08/23 @ 12:37 by Vangie Salas CMA) Household Members Other:: 2 Foster children Are you a primary memory care program resident to a significant other at home: Yes (2 foster children will be cared for by others for 1 week after surgery) Do you presently have visiting nurse or other home services: No Alcohol intake: current Alcohol intake frequency: holidays/special occasions only Patient Tobacco Use Status: Never used Tobacco e-Cigarette/Vaping Use: Never Used Second Hand Smoke Exposure: No service: No Current occupational status: employed Current occupational exposures/hazards: No Cognitive needs: No Hearing needs: No Vision needs: No Behavioral Health Assessment Weight Management Therapy Therapy Notes Details Subjective: Client reports engaging in restricting food intake during the day and overeating at night. She mentions finding it challenging to maintain healthy eating habits and a meal schedule. The client expresses frustration with her progress and emotional distress related to her eating patterns. Objective: Client presented for a follow-up session via Telehealth. CBT techniques were utilized to explore and challenge negative thoughts and patterns surrounding food, weight, and self-image. An interpersonal approach was used to examine potential social and emotional factors affecting eating behaviors. We also worked on symptom management strategies, including identifying triggers and discussing healthier coping mechanisms. Supported the client in setting realistic, sustainable weight loss goals post- surgery. Assessment/Response: * Mental status: Client is oriented x3, alert, and engaged in the session. She reports frustration with current eating habits and the progress of weight loss. * Risk reported/identified: None Client is responsive to interventions and engaged in exploring the connection between emotional factors and eating behaviors. Assessment & Plan Assessment & Plan (1) Adjustment disorder: Code(s): F43.20 - Adjustment disorder, unspecified Qualifiers: Adjustment disorder type: unspecified type Qualified Code(s): F43.20 - Adjustment disorder, unspecified Plan Next pau: 02/25/2024 Telehealth Telehealth [facility]health [facility] Location of provider rendering services: other Location of patient: other Patient Identification confirmed using: Name, : Yes Telehealth method: video Patient verbally consented to treatment: Yes Patient verbally consented to billing insurance company: Yes Patient informed of any privacy concerns related to visit: Yes Minutes spent on Phone/Video with Pt.: 60 Coding Level of Care Code Established Pt Tele Psytx >53 mins ([id number]) Patient Type Established Diagnoses Adjustment disorder, unspecified type F43.20 Adjustment disorder type: unspecified type Time Spent (min) 60
== END 2024-01-26 14:31 | disposition home or self-care (01) ==
LOC: HO.HBST 13:19
PROVIDERS: PCP Family Medicine; Visit Provider Counselor Mental Health
DX: F43.20 Adjustment disorder, unspecified (principal)
CPT/HCPCS: 90837

== ENCOUNTER 2024-02-15 13:38 | Outpatient (AMB) | payer BC, SELFPAY ==
--- NOTE | 2024-02-15 13:31 | A.OFFVIS_ITS ---
VS Expanded 02/15/24 13:39 Height 5 ft 3 in Weight 245 lb BMI 43.4 Intake Visit Reasons: (phone) PO LSG 09/04/21 Allergies Sulfa (Sulfonamide Antibiotics) Allergy (Severe, Verified 12/08/23 12:36) Itching Sulf-10 Allergy (Intermediate, Uncoded 01/20/23 12:28) Itching, skin crawls latex Adverse Reaction (Unknown, Uncoded 01/20/23 12:28) Blister Medication List - Last Reconciled 02/15/24 by CHANTELL Leung amlodipine 5 mg PO DAILY 90 days [multivitamin ] HPI Comments Details: This?is a?48?yo female who is s/p LSG 09/04/2021. Presents for 2 year 5 month post op visit. Weight at last visit on 12/08/2023 was 240.6 pounds; weight today is 245 pounds, representing a 4.4 pound weight loss with a BMI today of 43.4.? No complaints of nausea, emesis, abdominal pain or reflux, or constipation. Pt reports she has been meeting with therapist. Has an appt to see PCP, wants to discuss GLP1 agonists. Present meal plan includes: breakfast- 2 eggs with veg or GY/CC with fruit or protein bar lunch- 4oz protein, 4oz veg dinner- 4oz protein, 4oz veg or 1-2oz carb in place of 1-2oz veg snack- GY/CC or bar or low fat cheese 1-2oz with fruit or pea crisps or ostrim sick Exercise routine includes: hiking, walking has not worked out in the past 4 weeks, in part due to weather [facility] Medical History PCOS (polycystic ovarian syndrome) Diabetes Liver fibrosis Steatosis, liver GERD (gastroesophageal reflux disease) Arthritis Back pain HTN (hypertension) DONAVAN on CPAP Family planning Pre-op evaluation Anemia Vitamin D deficiency Surgical History Hx of cholecystectomy History of sleeve gastrectomy History of laparoscopy Morbid obesity History of left oophorectomy Umbilical hernia Family History Father Renal failure Mother Diabetes Hypothyroid Brother No problems noted. Sister No problems noted. Sister No problems noted. Maternal Grandmother Breast cancer Social History (Updated 12/08/23 @ 12:37 by Vangie Salas [facility]) Household Members Other:: 2 Foster children Are you a primary career development coordinator to a significant other at home: Yes (2 foster children will be cared for by others for 1 week after surgery) Do you presently have visiting nurse or other home services: No Alcohol intake: current Alcohol intake frequency: holidays/special occasions only Patient Tobacco Use Status: Never used Tobacco e-Cigarette/Vaping Use: Never Used Second Hand Smoke Exposure: No service: No Current occupational status: employed Current occupational exposures/hazards: No Cognitive needs: No Hearing needs: No Vision needs: No Telehealth Telehealth Telehealth Platform: Telephone Location of provider rendering services: practice address Location of patient: address on file Patient Identification confirmed using: Name, : Yes Telehealth method: voice only Patient verbally consented to treatment: Yes Patient verbally consented to billing insurance company: Yes Patient informed of any privacy concerns related to visit: Yes Minutes spent on Phone/Video with Pt.: 15 Assessment & Plan Assessment & Plan (1) S/P laparoscopic sleeve gastrectomy: Code(s): Z98.84 - Bariatric surgery status Category: Medical (2) Morbid obesity: Code(s): E66.01 - Morbid (severe) obesity due to excess calories Category: Surgical Plan Pt to ask her PCP about GLP1 agonists. I encouraged her to consider that she needs adequate protein in her meal plan while on this med, and should find a form of exercise that she can do in winter. She is considering purchasing a home bike. We discussed that weight loss and maintenance is very difficult without a regular exercise regimen. RTC 3-4 months. I spent a total of 30 minutes reviewing/updating records, examining the patient and counseling the patient on weight management as detailed above.
[2024-02-15 13:39] VITALS: BMI 43.4
== END 2024-02-15 13:57 | disposition home or self-care (01) ==
LOC: HO.HBS 13:38
PROVIDERS: PCP Family Medicine; Visit Provider Physician Assistant Surgical
DX: E66.813 Obesity, class 3 (principal); Z68.41 Body mass index [BMI] 40.0-44.9, adult; Z90.3 Acquired absence of stomach [part of]; Z98.84 Bariatric surgery status
CPT/HCPCS: 98967

== ENCOUNTER 2024-03-21 15:04 | Outpatient (AMB) | payer OTHER, SELFPAY ==
--- NOTE | 2024-03-21 15:19 | A.OFFPC_ITS ---
Vital Signs 03/21/24 15:22 03/21/24 15:49 Height 5 ft 3 in Weight 246 lb BMI 43.6 BP 144/78 H 142/90 H Blood Pressure Location Lt brachial Lt brachial Position Sitting Sitting Respiration 13 Pulse 92 Pulse Source Pulse Oximeter Temp 96.8 F Temp Source Oral Pulse Oximetry (%) 96 Oxygen Delivery Method Room Air Intake Visit Reasons: Annual PE Intake Note: annual physical Director It Required: No Allergies Sulfa (Sulfonamide Antibiotics) Allergy (Severe, Verified 03/21/24 15:32) Itching Sulf-10 Allergy (Intermediate, Uncoded 01/20/23 12:28) Itching, skin crawls latex Adverse Reaction (Unknown, Uncoded 01/20/23 12:28) Blister Medication List - Last Reconciled 03/21/24 by Юлия Ludwig, [employer]ER- amlodipine 5 mg PO DAILY 90 days [multivitamin ] Tobacco use date assessed: 03/21/24 Dental Screening Dental Screen Date: 03/21/24 Did you have a dental visit in the last 12 months?: Yes Did you have a dental problem in the last 6 months where you did not have access to dental care?: No Was dental information given to patient?: Patient has dentist HPI HPI Comments History of Present Illness Details 48-year-old female with includes obesity , hypertension, hepatomegaly, PCOS, diabetes, liver fibrosis, GERD, DONAVAN on CPAP, vitamin-D deficiency, anemia Status post gastric sleeve surgery and repair of paraesophageal diaphragmatic hernia Health maintenance Mammogram 2021, 2023 @ [facility] need records, requested. reports wnl Pap smear 2022, reports done in 2023 and wnl Colonoscopy 2023, repeat 10 years Tdap 2021 Flu declined The patient is a 48-year-old female presenting for a wellness visit and management of her chronic conditions, particularly focusing on weight management. Her medical history is significant for obesity, with a status post gastric sleeve surgery performed a couple of years ago. Despite the surgery, the patient reports weight regain and expresses a desire to lose weight through medication, previously discussed with her physician. She mentions concerns regarding medications slowing intestinal function due to previous hernia repairs. She also reports a rash developing under her abdominal pannus, likely due to skin friction, lasting several weeks without relief from home remedies - gold alegre She has experienced intermittent sleeping difficulties attributed to the discontinuation of her CPAP machine for DONAVAN, noticing increased wakefulness at night. Last sleep study done about 4 years ago Other chronic conditions include essential hypertension, managed with amlodipine, type 2 diabetes mellitus, PCOS, liver fibrosis, GERD, anemia, and vitamin D deficiency. She is no longer taking any vitamin-D supplements. She is no longer active with GI. She is currently active with bariatric clinic at [facility]. She is back on their meal plan. She reports that her mood is stable. She does report episodes of intermittent bladder spasms so bad that she ?sees stars?. Health Maintenance - Mammogram: Last performed in 2023 - Pap Smear: Completed in 2023 - Colonoscopy: Conducted in 2023, findin gs included mild diverticulosis - Influenza vaccine: Not received for current season - Tetanus, diphtheria, acellular pertuss is (Tdap) vaccine: Administered in 2021 - Vitamin D level monitoring: Previously noted as deficient - Discussions on dietary modifications a nd exercise as part of weight management Optho 1year ago glasses Social History - Cultural background: [place], with a diet comprising primarily of ground foods, fruits, seasoned meats, and rice - Reports a dislike for diets that do no t consider cultural dietary preferences - No specific exercise routine mentioned ; there is an interest in starting to work out - [facility] Review of Systems - Gastrointestinal: Reports acid reflux, worsens with weight gain - Dermatologic: Reports rash under abdom inal pannus - Respiratory: Denies any current breath ing difficulties - Neurological: Denies dizziness - Sleep: Reports difficulty sleeping due to non-use of CPAP - Musculoskeletal: Reports periodic heather re abdominal spasms when driving Physical Exam General: Well developed, well nourished, in no acute distress. Appears stated age. Head: Normocephalic, atraumatic. Eyes: Pupils are equal, round and reactive to light and accommodation. Conjunctivae are clear. Vision grossly normal. Ears: TMs clear AU, EACS WNL Nose: Patent, without discharge. Mouth: There are no ulcers or lesions noted. No inflammation, no post nasal drip, no plaques nor exudates. Neck: Supple, no adenopathy or thyromegaly. Lungs: Clear to auscultation bilaterally. No rales, rhonchi or wheeze noted. Good air flow in all santana. Heart: Regular rate and rhythm. No murmurs, click, rubs or gallops are noted. Abdomen: Bowel sounds present in all quadrants. The abdomen is soft, nontender, with no masses or organomegaly noted. No hernias are noted. Musculoskeletal: Joints are nontender, without swelling, redness, or effusions. Range of motion is observed to be normal. Pulses: Peripheral pulses are equal and palpable bilaterally. Extremities: No clubbing, cyanosis nor edema is noted. Neurologic: Gait and station normal. Cranial Nerves 2-12 intact. Motor strength grossly symmetrical and intact. No sensory loss. Balance normal. Skin: No rashes, ulcers, or lesions noted. Turgor is good. Skin color is good. Hair and nails are without abnormalities. No rash noted under her pannus today Psych: Normal eye contact, affect and mood appropriate, and normal i nteractions. Patient is alert and appropriate to context. Results - Labs: Last comprehensive blood work do ne in April 2023, indicating mild anemia - No recent thyroid function tests condu cted since 2022 Plan - Recommend re-initiation of CPAP use fo r management of obstructive sleep apnea, check sleep study 1st. - Referral to a dietitian for culturally appropriate weight management guidance. She is to make an and reports that he is very hard to follow the weight loss diet of meal bars and shakes. - Order laboratory tests to re-evaluate anemia, thyroid function, renal and liver panels, and vitamin D levels - Prescribe a medicated powder for rash under abdominal pannus, . Using [id number] powder. - Refill amlodipine prescription and arcenio edule for blood pressure re-check in two weeks. If not at goal upon recheck will increase her amlodipine back to 10 mg which is what she was on when she was at a lower weight. - Recommend follow-up appointment with [facility] surgery team to discuss abdominal spasms. If they are not able to address this recommend following up with [facility]. Patient was informed and verbally consented to the use of an ambient scribe for clinic note documentation during this visit. Discussion Notes During the visit, I discussed with the patient the challenges of long-term weight management and the risks associated with injectable weight loss medications, including their cost and potential for weight regain upon discontinuation. We talked about the benefits of culturally tailored dietary modifications and increasing physical activity to achieve sustainable weight loss. I emphasized the importance of maintaining her current medication regimen for hypertension and diabetes, and considered initiating further evaluations if blood pressure remains elevated. We discussed the need to resume CPAP therapy to improve sleep quality and addressed the development of the rash, providing a prescription for an alternate topical treatment. The patient agreed to follow-up on dietary counseling and participate in a sleep study to optimize her management of obstructive sleep apnea. I scheduled laboratory tests to inform the future management of possible nutritional deficits and comorbid conditions. Advised that she will need to follow up for a telehealth visit to review her lab results as well as her sleep study testing. The office can arrange this once the results are and ready to be reviewed. The patient agrees. Patient Instructions - Resume use of CPAP as tolerated for im proved sleep quality - Expect contact from a dietitian to [facility] consultation for tailored nutrition advice - Apply prescribed powder to affected sk in area as directed, avoid using [employer] - Return for a blood pressure check in t wo weeks - Follow up with bariatric surgery team regarding abdominal spasms - Complete blood work today and await te st results - Schedule an appointment for a home sle ep study - Monitor any new or worsening symptoms and report to the healthcare team if necessary An additional 20 minutes was spent addressing the problem(s) noted at todays visit. This includes time spent before the visit reviewing the chart, time spent during the visit, and time spent after the visit on documentation reviewing laboratory results, diagnostic imaging, medications, performing a medically necessary evaluation, counseling on diagnoses, care coordination, ordering appropriate tests, ordering appropriate medications, review of tests performed by other providers, reporting test results with the patient, communication with other healthcare providers. [facility] Medical History (Updated 03/21/24 @ 16:09 by Юлия Ludwig, [facility]) PCOS (polycystic ovarian syndrome) Liver fibrosis Steatosis, liver GERD (gastroesophageal reflux disease) Arthritis Back pain HTN (hypertension) DONAVAN on CPAP Family planning Pre-op evaluation Anemia Vitamin D deficiency Surgical History Hx of cholecystectomy History of sleeve gastrectomy History of laparoscopy Morbid obesity History of left oophorectomy Umbilical hernia Family History Father Renal failure Mother Diabetes Hypothyroid Brother No problems noted. Sister No problems noted. Sister No problems noted. Maternal Grandmother Breast cancer Social History (Updated 12/08/23 @ 12:37 by Vangie Salas [facility]) Household Members Other:: 2 Foster children Are you a primary day care worker to a significant other at home: Yes (2 foster children will be cared for by others for 1 week after surgery) Do you presently have visiting nurse or other home services: No Alcohol intake: current Alcohol intake frequency: holidays/special occasions only Patient Tobacco Use Status: Never used Tobacco e-Cigarette/Vaping Use: Never Used Second Hand Smoke Exposure: No service: No Current occupational status: employed Current occupational exposures/hazards: No Cognitive needs: No Hearing needs: No Vision needs: No Questionnaire PHQ-9 Over the last 2 weeks, how often have you been bothered by any of the following problems? 1. Little interest or pleasure in doing things: not at all 2. Feeling down, depressed, or hopeless: not at all 3. Trouble falling or staying asleep, or sleeping too much: not at all 4. Feeling tired or having little energy: not at all 5. Poor appetite or overeating: several days 6. Feeling bad about yourself - or that you are a failure or have let yourself or your family down: not at all 7. Trouble concentrating on things, such as reading the newspaper or watching television: not at all 8. Moving or speaking so slowly that other people could have noticed. Or the opposite - being so fidgety or restless that you have been moving around a lot more than usual: not at all 9. Thoughts that you would be better off or of hurting yourself in some way: not at all Total score: 1 Depression Screening Interpretation: Negative Depression Screening Done: Yes 13981 - PHQ-9 Billing: Yes Source: Developed by Drs. Fidencio Andrew, Veronique Diehl, Zain Barnes and colleagues, with an educational tommy from [employer]. Thrive Questionnaire Date Thrive assessed: 03/21/24 I am a: Patient What is your living situation today?: I have a steady place to live Within the past 12 months, did the food you bought not last and you didn't have the money to get more?: I choose not to answer this question Within the past 12 months, did you worry whether your food would run out before you got money to buy more?: Sometimes True Do you have trouble paying for medicines?: I choose not to answer this question Do you have trouble getting transportation to medical appointments?: No Do you have trouble paying your heating and electricity bill?: Yes Do you have trouble taking care of your child, family member or friend?: No Do you have trouble with day-to-day activities such as bathing, preparing meals, shopping, managing finances, etc.?: No Are you currently unemployed and looking for a job?: No Are you interested in more education?: No Please select the resources that you would like help with: None Currently or been in a relationship where the following occur: No concerns reported THRIVE Score: 2 AUDIT C Alcohol Use Questionnaire (AUDIT-C) 1. How often do you have a drink containing alcohol?: 2-4 times a month 2. How many drinks containing alcohol do you have on a typical day when you are drinking?: 1 or 2 3. How often do you have six or more drinks on one occasion?: Never Total Score: 2 Score Reviewed/Action Taken: Yes SERG-7 AMB Questionnaire SERG-7 Date SERG - 7 assessed: 03/21/24 Feeling nervous, anxious, or on edge: 1 = Several days Not being able to stop or control worryin = Several days Worrying too much about different things: 1 = Several days Trouble relaxin = Several days Being so restless that it is hard to sit still: 1 = Several days Becoming easily annoyed or irritable: 1 = Several days Feeling afraid as if something awful might happen: 1 = Several days Total SERG-7 score (0-4 normal; 5-9 mild; 10-14 moderate; 15-21 severe): 7 Source: Developed by Drs. Fidencio Andrew, Veronique Diehl, Zain Barnes and colleagues, with an educational tommy from [employer]. SERG-7 Assessment Billing SERG-7 Assessment Tool: SERG-7 Assessment 11795 Physical exam (Primary Care) Vital Signs: Last Vital Signs Temp 96.8 F 03/21/24 15:22 Pulse 92 03/21/24 15:22 Resp 13 03/21/24 15:22 BP 144/78 H 03/21/24 15:22 Pulse Ox 96 01/27/25 15:22 Oxygen Delivery Method Room Air 03/21/24 15:22 BMI result Body Mass Index 43.6 BMI Assessment/Plan discussion: High BMI High, discussed plan: lifestyle Tobacco/Smoking Status: Tobacco use Status Tobacco use date assessed 03/21/24 03/21/24 15:21 Patient Tobacco Use Status Never used Tobacco 03/21/24 15:21 e-Cigarette/Vaping Use Never Used 03/21/24 15:21 PHQ-9: PHQ-9 Score PHQ-9: Total score 1 03/21/24 15:21 Depression Screening Interpretation: Negative Thrive Assessment: Date of Thrive Assessment Date Thrive assessed 03/21/24 03/21/24 15:21 Currently or been in a relationship where the following occur: No concerns reported Coding Level of Care Code Est Pt Level 3 (11556) Est Pt Prev Care 40-64y(96343) Diagnoses Encounter for general adult medical examination with abnormal findings Z00.01 Morbid obesity E66.01 Mild anemia D64.9 Elevated parathyroid hormone R79.89 DONAVAN on CPAP G47.33; Z99.89 Snoring R06.83 Type 2 diabetes mellitus with other specified complication, without long-term current use of insulin E11.69 Diabetes mellitus type: type 2 Diabetes mellitus oil heaterman insulin use: without oil heaterman use Diabetes mellitus complication status: with other specified complication PCOS (polycystic ovarian syndrome) E28.2 Rash R21 S/P laparoscopic sleeve gastrectomy Z98.84 Steatosis, liver K76.0 Essential hypertension I10 Gastroesophageal reflux disease without esophagitis K21.9 Esophagitis presence: without esophagitis Hepatomegaly R16.0 Liver fibrosis K74.00 Influenza vaccination declined Z28.21 Additional Codes SERG-7 Assessment Billing - SERG-7 Assessment Tool: SERG-7 Assessment 90660 ([id number]) PHQ-9 - 74427 - PHQ-9 Billing: Yes ([id number]) Assessment & Plan Assessment & Plan (1) Encounter for general adult medical examination with abnormal findings: Code(s): Z00.01 - Encounter for general adult medical examination with abnormal findings (2) Morbid obesity: Code(s): E66.01 - Morbid (severe) obesity due to excess calories Category: Surgical (3) Mild anemia: Code(s): D64.9 - Anemia, unspecified Category: Medical (4) Elevated parathyroid hormone: Code(s): R79.89 - Other specified abnormal findings of blood chemistry Category: Medical (5) DONAVAN on CPAP: Code(s): G47.33 - Obstructive sleep apnea (adult) (pediatric); Z99.89 - Dependence on other enabling machines and devices Category: Medical (6) Snoring: Code(s): R06.83 - Snoring Category: Medical (7) Diabetes: Comment: HTN AND OBESITY Code(s): E11.9 - Type 2 diabetes mellitus without complications Category: Medical Qualifiers: Diabetes mellitus type: type 2 Diabetes mellitus oil heaterman insulin use: without oil heaterman use Diabetes mellitus complication status: with other specified complication Qualified Code(s): E11.69 - Type 2 diabetes mellitus with other specified complication (8) PCOS (polycystic ovarian syndrome): Code(s): E28.2 - Polycystic ovarian syndrome Category: Medical (9) Rash: Code(s): R21 - Rash and other nonspecific skin eruption Category: Medical (10) S/P laparoscopic sleeve gastrectomy: Code(s): Z98.84 - Bariatric surgery status Category: Surgical (11) Steatosis, liver: Code(s): K76.0 - Fatty (change of) liver, not elsewhere classified Category: Medical (12) Essential hypertension: Code(s): I10 - Essential (primary) hypertension Category: Medical (13) GERD (gastroesophageal reflux disease): Code(s): K21.9 - Gastro-esophageal reflux disease without esophagitis Category: Medical Qualifiers: Esophagitis presence: without esophagitis Qualified Code(s): K21.9 - Gastro-esophageal reflux disease without esophagitis (14) Hepatomegaly: Code(s): R16.0 - Hepatomegaly, not elsewhere classified Category: Medical (15) Liver fibrosis: Code(s): K74.00 - Hepatic fibrosis, unspecified Category: Medical (16) Influenza vaccination declined: Code(s): Z28.21 - Immunization not carried out because of patient refusal Category: Medical Plan . Orders: Orders Hemoglobin A1c Today D64.9 - Anemia, unspecified, E66.01 - Morbid (severe) obesity due to excess calories, R79.89 - Other specified abnormal findings of blood chemistry TSH reflex Free T4 Today D64.9 - Anemia, unspecified, E66.01 - Morbid (severe) obesity due to excess calories, R79.89 - Other specified abnormal findings of blood chemistry Vitamin D 25-OH Total Today D64.9 - Anemia, unspecified, E66.01 - Morbid (severe) obesity due to excess calories, R79.89 - Other specified abnormal findings of blood chemistry Complete Blood Count no Diff Today D64.9 - Anemia, unspecified, E66.01 - Morbid (severe) obesity due to excess calories, R79.89 - Other specified abnormal findings of blood chemistry Comprehensive Met. Panel Today D64.9 - Anemia, unspecified, E66.01 - Morbid (severe) obesity due to excess calories, R79.89 - Other specified abnormal findings of blood chemistry Lipid Panel Today D64.9 - Anemia, unspecified, E66.01 - Morbid (severe) obesity due to excess calories, R79.89 - Other specified abnormal findings of blood chemistry Vitamin B12 and Folate Today D64.9 - Anemia, unspecified, E66.01 - Morbid (severe) obesity due to excess calories, R79.89 - Other specified abnormal findings of blood chemistry Parathyroid Hormone Intact Today D64.9 - Anemia, unspecified, E66.01 - Morbid (severe) obesity due to excess calories, R79.89 - Other specified abnormal findings of blood chemistry RT home sleep study Today E66.01 - Morbid (severe) obesity due to excess calories, G47.33 - Obstructive sleep apnea (adult) (pediatric), R06.83 - Snoring, Z99.89 - Dependence on other enabling machines and devices Referrals Contact Center Manager Nutrition Referral E66.01 - Morbid (severe) obesity due to excess calories Medications: New nystatin 1 appl topical BID PRN 60 grams 2RF rash Refilled amlodipine 5 mg PO DAILY 90 days 90 tabs 2RF Patient Instructions: Health screenings for women You should visit your health care provider from time to time, even if you are healthy. The purpose of these visits is to: Screen for medical issues Assess your risk for future medical problems Encourage a healthy lifestyle Update vaccinations and other preventive care services Help you get to know your provider in case of an illness Information Even if you feel fine, you should still see your provider for regular checkups. These visits can help you avoid problems in the future. For example, the only way to find out if you have high blood pressure is to have it checked regularly. High blood sugar and high cholesterol levels also may not have any symptoms in the early stages. A simple blood test can check for these conditions. There are specific times when you should see your provider or receive specific health screenings. The [place] Preventive Services Task Force publishes a list of recommended screenings. Below are screening guidelines for women ages 18 to 39. BLOOD PRESSURE SCREENING Your blood pressure should be checked at least once every 3 to 5 years if: Your blood pressure is in the normal range (top number less than 120 mm Hg and bottom number less than 80 mm Hg) You don't have risk factors for high blood pressure Ask your provider if you need your blood pressure checked more often if: The top number is 120 to 129 mm Hg or the bottom number is 70 to 79 mm Hg You have diabetes, heart disease, kidney problems, are overweight, or have certain other health conditions You have a first-degree relative with high blood pressure You are Black You had high blood pressure during a If the top number is 130 mm Hg or greater or the bottom number is 80 mm Hg or greater, this is considered stage 1 hypertension. Schedule an appointment with your provider to learn how you can reduce your blood pressure. Watch for blood pressure screenings in your area. Ask your provider if you can stop in to have your blood pressure checked. BREAST CANCER SCREENING Experts do not agree about the benefits of breast self-exams in finding breast cancer or saving lives. Talk to your provider about what is best for you. A screening mammogram is not recommended for most women under age 40. Your provider may discuss and recommend mammograms, MRI scans, or ultrasounds if you have an increased risk for breast cancer, such as: A mother or sister who had breast cancer at a young age (most often starting screening earlier than the age the close relative was diagnosed) You carry a high-risk genetic marker CERVICAL CANCER SCREENING Cervical cancer screening should start at age 21 years unless your provider advises otherwise. After the first test: Women ages 21 through 29 should have a Pap test every 3 years. Exoprts do not agree on whether HPV testing is recommended for this age group. Women ages 30 through 65 should be screened with either a Pap test every 3 years or the HPV test every 5 years or both tests every 5 years (called cotesting ). Women who have been treated for precancer (cervical dysplasia) should continue to have Pap tests for 20 years after treatment or until age 65, whichever is longer. If you have had your uterus and cervix removed (total hysterectomy), and you have not been diagnosed with cervical cancer or precancer (high grade cervical neoplasia), you do not need cervical cancer screening. CHOLESTEROL SCREENING Cholesterol screening should begin at: Age 45 for women with no known risk factors for coronary heart disease Age 20 for women with known risk factors for coronary heart disease Repeat cholesterol screening should take place: Every 5 years for women with normal cholesterol levels More often if changes occur in lifestyle (including weight gain and diet) More often if you have diabetes, heart disease, kidney problems, or certain other conditions DIABETES SCREENING You should be screened for diabetes starting at age 35 and then repeated every 3 years if you have no risk factors for diabetes. Screening may need to start earlier and be repeated more often if you have other risk factors for diabetes, such as: You have a first degree relative with diabetes. You are overweight or have obesity. You have high blood pressure, prediabetes, or a history of heart disease. Screening for diabetes should be done if you are planning to become and you are overweight and have other risk factors such as high blood pressure. DENTAL EXAM Go to the dentist once or twice every year for an exam and cleaning. Your dentist will evaluate if you need more frequent visits. EYE EXAM Have an eye exam every 5 to 10 years before age 40. If you have vision problems, have an eye exam every 2 years or more often if recommended by your provider. You should have an eye exam that includes an examination of your retina (back of your eye) at least every year if you have diabetes. IMMUNIZATIONS Commonly needed vaccines include: Flu shot: get one every year. COVID-19 vaccine: ask your provider what is best for you. Tetanus-diphtheria and acellular pertussis (Tdap) vaccine: have one at or after age 19 as one of your tetanus-diphtheria vaccines if you did not receive it as an adolescent. Tetanus-diphtheria: have a booster (or Tdap) every 10 years. Varicella vaccine: receive 2 doses if you never had chickenpox or the varicella vaccine. Hepatitis B vaccine: receive 2, 3, or 4 doses, depending on your exact circumstances. Measles, mumps, and rubella (MMR) vaccine: receive 1 to 2 doses if you are not already immune to MMR. Your provider can tell you if you are immune. Ask your provider about the human papillomavirus (HPV) vaccine if: You have not received the HPV vaccine in the past You have not completed the full vaccine series (you should catch up on this shot) Ask your provider if you should receive other immunizations if you have certain health problems that increase your risk for some diseases such as pneumonia. INFECTIOUS DISEASE SCREENING Women who are sexually active should be screened for chlamydia and gonorrhea up until age 25. Women 25 years and older should be screened for chlamydia and gonorrhea if at high risk. Screening for hepatitis C: All adults ages 18 to 79 should get a one-time test for hepatitis C. people should be screened at every . Screening for human immunodeficiency virus (HIV): All people ages 15 to 65 should get a one-time test for HIV. Depending on your lifestyle and medical history, you may also need to be screened for infections such as syphilis and HIV, as well as other infections. PHYSICAL EXAM All adults should visit their provider from time to time, even if they are healthy. The purpose of these visits is to: Screen for disease Assess your risk of future medical problems Encourage a healthy lifestyle Update your vaccinations and other preventive care services Maintain a relationship with a provider in case of an illness Your height, weight, and BMI should be checked at every exam. During your exam, your provider may ask you about: Depression and anxiety Diet and exercise Alcohol and tobacco use Safety issues, such as using seat belts, smoke detectors, and intimate partner violence Your medicines and risk for interactions SKIN SELF-EXAM Your provider may check your skin for signs of skin cancer, especially if you're at high risk, such as if you: Have had skin cancer before Have close relatives with skin cancer Have a weakened immune system OTHER SCREENING Talk with your provider about colon cancer screening if you have a strong family history of colon cancer or polyps, or if you have had inflammatory bowel disease or polyps yourself. Routine bone density screening of women under 40 is not recommended.
[2024-03-21 15:22] VITALS: BP 144/78; PULSE 92; RESP 13; TEMP 36; O2SAT 96; BMI 43.6
[2024-03-21 15:49] VITALS: BP 142/90
== END 2024-03-21 16:09 | disposition home or self-care (01) ==
PROVIDERS: PCP Family Medicine; Visit Provider Nurse Practitioner Family
DX: Z00.00 Encounter for general adult medical examination without abnormal findings (principal); E66.01 Morbid (severe) obesity due to excess calories; E11.69 Type 2 diabetes mellitus with other specified complication; Z68.41 Body mass index [BMI] 40.0-44.9, adult; D64.9 Anemia, unspecified; R79.89 Other specified abnormal findings of blood chemistry; G47.33 Obstructive sleep apnea (adult) (pediatric); Z99.89 Dependence on other enabling machines and devices; R06.83 Snoring; E28.2 Polycystic ovarian syndrome; R21 Rash and other nonspecific skin eruption; Z98.84 Bariatric surgery status

== ENCOUNTER 2024-03-21 16:02 | Outpatient (REF) | payer OTHER, SELFPAY ==
[2024-03-21 17:46] LABS: MANUAL DIFF FLAG NO
[2024-03-21 18:00] LABS: Basophils Absolute Auto 0.1 X10*3/uL (0.0-0.2); Basophils Percent Auto 0.6 % (0-2); Eosinophils Absolute Auto 0.1 X10*3/uL (0.0-0.4); Eosinophils Percent Auto 1.2 % (0-4); Hematocrit 38.1 % (37.0-47.0); Hemoglobin 11.9 g/dl (12.0-16.0); Imm Gran Abs Auto 0.03 X10*3/uL (0.00-0.03); Imm Gran Pct Auto 0.4 % (0.0-0.4); Lymphocytes Absolute Auto 2.2 X10*3/uL (1.2-4.9); Lymphocytes Percent Auto 26.3 % (20-40); Mean Corpuscular HGB Conc 31.2 g/dl (31.0-35.0); Mean Corpuscular Hemoglobin 27.7 pg (27.0-33.0); Mean Corpuscular Volume 88.8 fL (80.0-98.0); Mean Platelet Volume 9.9 fL (9.4-12.3); Monocytes Absolute Auto 0.5 X10*3/uL (0.1-1.2); Monocytes Percent Auto 5.4 % (2-11); Neutrophils Absolute Auto 5.7 x10*3/uL (2.0-8.3); Neutrophils Percent Auto 66.1 % (45-73); Platelet Count 383 X10*3/uL (160-400); Red Blood Count 4.29 X10*6/uL (4.20-5.50); Red Cell Distribution Width 12.5 % (11.0-16.0); White Blood Count 8.5 X10*3/uL (4.8-10.8)
[2024-03-21 18:29] LABS: Alanine Aminotransferase 18 U/L (0-31); Alkaline Phosphatase 95 U/L (39-117); Anion Gap 8 (12-20); Aspartate Amino Transferase 20 U/L (5-31); Bilirubin Total 0.2 mg/dL (0.0-1.0); Blood Urea Nitrogen 14 mg/dL (9-16); C Reactive Protein 0.44 mg/dL (< or = 0.50); Calcium 8.9 mg/dL (8.4-10.2); Carbon Dioxide 25 mmol/L (22-29); Chloride 113 mmol/L (96-108); Cholesterol 175 mg/dL (<200); Estimated Glomerular Filt Rate > 60; Glucose Random 102 mg/dL (60-115); HDL Cholesterol 44 mg/dL (>40); Iron 38 mcg/dL (30-160); LDL Cholesterol Calculated 95 mg/dL (<100); Percent Iron Saturation 13 % (15-50); Potassium 3.3 mmol/L (3.3-5.1); Sodium 143 mmol/L (135-145); Total Iron Binding Capacity 285 mcg/dL (228-428); Total Protein 7.3 g/dL (6.5-8.0); Triglycerides 184 mg/dL (<150); Unsaturated Iron Binding 247 ug/dL
[2024-03-21 18:44] LABS: Ferritin 55 ng/mL (10-250)
[2024-03-21 18:53] LABS: Insulin 45 uU/mL (2-29)
[2024-03-21 18:57] LABS: Vitamin B12 563 pg/mL (200-900)
[2024-03-22 07:54] LABS: Estimated Average Glucose 114 mg/dL; Hemoglobin A1C 119.3062 umol/L; Hemoglobin A1c % 5.6 % (<6.0); Total Hemoglobin (HGBA1C) 3191.5268 umol/L
== END 2024-03-21 16:03 | disposition home or self-care (01) ==
LOC: HO.WFDLDS 16:02
PROVIDERS: Referring Provider Physician Assistant Surgical; Visit Provider Nurse Practitioner Family
DX: E66.01 Morbid (severe) obesity due to excess calories (principal); D64.9 Anemia, unspecified; Z98.84 Bariatric surgery status; R79.89 Other specified abnormal findings of blood chemistry
CPT/HCPCS: 36415; 80053; 80061; 82306; 82607; 82728; 82746; 83036; 83525; 83540; 84443; 85025; 86140; 96127

== ENCOUNTER 2024-05-09 14:16 | Outpatient (AMB) | payer OTHER, SELFPAY ==
--- NOTE | 2024-05-09 14:45 | MHC.AMNUTRGE ---
VS Expanded 05/09/24 15:09 05/17/24 13:33 Height 5 ft 3 in 5 ft 3 in Weight 243 lb 13.3 oz 244 lb BMI 43.2 43.2 Intake Visit Reasons: Morbid (severe) obesity due to excess calories Allergies Sulfa (Sulfonamide Antibiotics) Allergy (Severe, Verified 03/21/24 15:32) Itching Sulf-10 Allergy (Intermediate, Uncoded 01/20/23 12:28) Itching, skin crawls latex Adverse Reaction (Unknown, Uncoded 01/20/23 12:28) Blister Nutrition Presentation Details: Pt presents for MNT for obesity Pt reports weight gain of 40 lbs since 2021 Typical meal intake coffee monk fruit/splenda (16oz) 10 am: DD breakfast sand (egg/sausage on croissant or bagel) sushi or soup chicken noodles or tomato or salad (tuna/eggs), water propel (protein shake) D: variety of foods vegetable/protein granola bar physical activity:ADL etoh/smoking --- BS Monitoring Most Recent Diabetes Results: Cholesterol 175 mg/dL (<200) 03/21/24 HDL Cholesterol 44 mg/dL (>40) 03/21/24 Triglycerides 184 mg/dL (<150) H 03/21/24 Creatinine 0.66 mg/dL (0.5-1.4) 03/21/24 Blood Urea Nitrogen 14 mg/dL (9-16) 03/21/24 Sodium 143 mmol/L (135-145) 03/21/24 Potassium 3.3 mmol/L (3.3-5.1) 03/21/24 Chloride 113 mmol/L (96-108) H 03/21/24 Carbon Dioxide 25 mmol/L (22-29) 03/21/24 Calcium 8.9 mg/dL (8.4-10.2) 03/21/24 AST 20 U/L (5-31) 03/21/24 ALT 18 U/L (0-31) 03/21/24 Total Protein 7.3 g/dL (6.5-8.0) 03/21/24 Albumin 4.0 g/dL (3.5-5.0) 03/21/24 AIE-Zpqleta-Ad.Jeor Equation Height: 5 ft 3 in Weight: 244 lb Resting Metabolic Rate: 1698.78 Calculated Activity Level: Sedentary Calories Needed to Maintain Weight: 2038.54 Diagnosis Nutrition problem #1: overweight/obesity As related to (etiology) #1: diagnosis As evidenced by (sign/symptom) #1: high BMI [facility] Medical History (Updated 03/21/24 @ 16:09 by Юлия Ludwig, [facility]) PCOS (polycystic ovarian syndrome) Liver fibrosis Steatosis, liver GERD (gastroesophageal reflux disease) Arthritis Back pain HTN (hypertension) DONAVAN on CPAP Family planning Pre-op evaluation Anemia Vitamin D deficiency Surgical History Hx of cholecystectomy History of sleeve gastrectomy History of laparoscopy Morbid obesity History of left oophorectomy Umbilical hernia Family History Father Renal failure Mother Diabetes Hypothyroid Brother No problems noted. Sister No problems noted. Sister No problems noted. Maternal Grandmother Breast cancer Social History (Updated 12/08/23 @ 12:37 by Vangie Salas CMA) Household Members Other:: 2 Foster children Are you a primary women's health care nurse practitioner to a significant other at home: Yes (2 foster children will be cared for by others for 1 week after surgery) Do you presently have visiting nurse or other home services: No Alcohol intake: current Alcohol intake frequency: holidays/special occasions only Patient Tobacco Use Status: Never used Tobacco e-Cigarette/Vaping Use: Never Used Second Hand Smoke Exposure: No service: No Current occupational status: employed Current occupational exposures/hazards: No Cognitive needs: No Hearing needs: No Vision needs: No Assessment & Plan Assessment & Plan (1) Morbid obesity: Code(s): E66.01 - Morbid (severe) obesity due to excess calories Category: Surgical Plan: Wt:111 Kg ( 05/17 ) Est kcal needs as per MSJ: 2000 (40% carb, 30% protein/fat) Est fluid needs as per 25-30 ml/d: 3300 Est prot per day as per 1 g/kg bw: 111 Recommend fiber intake : 8-10 g per day and gradually increase to 25-28 g per day for women and 35-38 g for men or as tolerated Recommend sodium intake per day : less than 1500 mg less than 2000 mg Educated patient on: ( R = reviewed V = verbalizes understanding N/R = needs review N/A = not applicable Food sources of carbohydrate, adequate serving sizes and its role in various health conditions: R V N/R Differences between complex carbohydrates a simple carbohydrates, role of fiber in diet: R fluids:water , low sugar beverages:R Lean protein sources of foods: R V NR Differences between types of fats and role in diet (mono on saturated fat fatty acids, saturated fatty acids, trans fats): R V N/R Food sources of sodium in salt and healthy modifications for heart health in kidney health: R V R/V Vitamins and minerals: R V N/R Healthy plate method concept: R Physical activity: Benefits a precaution: R Patient Instructions: have apple with peanut butter as bedtime snack Reduce portion of starches to 1 cup serving (1/2 c rice + 1/2 c beans or 1 cup of potatoes or 1/2 c potato and 1/2 c corn) Drink water with meals/snacks Coding Level of Care Code Nutr Indiv Intake (09961) Diagnoses Morbid obesity E66.01 Time Spent (min) 30
[2024-05-09 15:09] VITALS: BMI 43.2
[2024-05-18 10:23] VITALS: BMI 43.2
== END 2024-05-09 15:21 | disposition home or self-care (01) ==
LOC: HO.ENCR 14:17
PROVIDERS: PCP Family Medicine; Visit Provider Dietitian, Registered
DX: E66.01 Morbid (severe) obesity due to excess calories (principal)

== ENCOUNTER → 2024-05-09 14:16 | Outpatient (BNVA) | payer OTHER, SELFPAY | PROVIDERS: PCP Family Medicine; Visit Provider Dietitian, Registered | DX: E66.01 Morbid (severe) obesity due to excess calories (principal); Z71.3 Dietary counseling and surveillance; Z68.41 Body mass index [BMI] 40.0-44.9, adult | CPT/HCPCS: 97802 ==